=== PATIENT | male | born 1995 | race African-American/Black ===

== ENCOUNTER 2017-03-02 03:47 | Emergency (ER) | payer OTHER ==
[~2017-03-02] VITALS: Ht 170.2 cm; Wt 84.0 kg
[~2017-03-02 03:47] MED LIST: ANTIBIOTIC; ANTIDEPRESSANT; ARIP5TAB13 PO; CLON0.5T PO; HYDR10TA2 PO; PROM25TA10 PO; RANI150T6 PO; SERT25TA PO; TRAZ300T2 PO; other
[2017-03-02] MEDS ORDERED: IV NORMAL SALINE 1,000ML 1,000 ML IV SCH (04:00)
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
[2017-03-02] MEDS ORDERED: fentaNYL PF 100 MCG/2 ML VIAL IV ONE (04:30)
[2017-03-02] MEDS ORDERED: fentaNYL PF 100 MCG/2 ML VIAL IM ONE (04:30)
[2017-03-02] MEDS ORDERED: ONDANSETRON PF 4 MG/2 ML VIAL. IV ONE (04:30)
[2017-03-02 05:01] LABS: BASO # 0.1 x10^3/uL (0.0-0.2); BASO % 1 % (0-3); EOS % 0 % (0-3); HEMATOCRIT 50.2 % (39.0-53.0); HEMOGLOBIN 17.1 g/dL (13.0-17.5); LYMPH # 1.8 x10^3/uL (1.0-4.8); LYMPH % 33 % (24-48); MEAN CORPUSCULAR HEMOGLOBIN 29 pg (25-35); MEAN CORPUSCULAR HGB CONC 34 g/dL (31-37); MEAN CORPUSCULAR VOLUME 86 fL (79-100); MONO # 0.5 x10^3/uL (0.0-1.1); MONO % 9 % (0-9); NEUT # 3.1 x10^3uL (1.8-7.7); NEUT % 57 % (31-73); PLATELET COUNT 194 x10^3/uL (140-400); RED BLOOD COUNT 5.85 x10^6/uL (4.30-5.70); RED CELL DISTRIBUTION WIDTH 13.4 % (11.5-14.5); WHITE BLOOD COUNT 5.4 x10^3/uL (4.0-11.0)
[2017-03-02 05:53] LABS: BILIRUBIN,URINE SMALL (NEG); CLARITY,URINE CLEAR; COLOR,URINE YELLOW; GLUCOSE,URINE NEG (NEG)
[2017-03-02 05:54] LABS: BACTERIA,URINE FEW /HPF (0-FEW); NITRITE,URINE NEG (NEG); SQUAMOUS EPITHELIAL CELL,UR OCC /LPF; UROBILINOGEN,URINE 1 mg/dL (0.2 mg/dL)
[2017-03-02] MEDS ORDERED: IV NORMAL SALINE 1,000ML 1,000 ML IV ONE (06:00)
[2017-03-02] MEDS ORDERED: diphenhydrAMINE 50 MG/ML VIAL IVP ONE (06:00)
[2017-03-02 06:02] LABS: ALBUMIN 4.7 g/dL (3.4-5.0); ALBUMIN/GLOBULIN RATIO 1.1 (1.0-1.7); CALCIUM 9.6 mg/dL (8.5-10.1); CREATININE 1.3 mg/dL (0.7-1.3); DIRECT BILIRUBIN 0.1 mg/dL (0.0-0.2); GFR 83.5; MAGNESIUM 1.9 mg/dL (1.8-2.4); POTASSIUM 3.3 mmol/L (3.5-5.1); TOTAL BILIRUBIN 0.4 mg/dL (0.2-1.0); TOTAL PROTEIN 9.1 g/dL (6.4-8.2)
[2017-03-02 06:21] VITALS: BP 122/73
--- NOTE | 2017-03-02 06:24 | EKG ---
[address] [address] Test Date: 2017-03-02 Test Time: 03:56:19 Pat Name: KRISTI WEISS Department: Room: Gender: M Operator Supply: JANINE : 1995 Requested By: DOROTEO ORTA Order Number: [id number] Reading MD: Measurements Intervals [place] Rate: 124 P: -93 OR: 96 QRS: 62 QRSD: 86 T: 30 QT: 354 QTc: 513 Interpretive Statements SINUS TACHYCARDIA LEFT ATRIAL ABNORMALITY NON SPECIFIC T ABNORMALITY RI6.01 Unconfirmed report No previous ECG available for comparison
[2017-03-02] MEDS ORDERED: ONDA8TAB12 PO (06:39)
--- NOTE | 2017-03-02 08:05 | RAD ---
Indication chest pain. A single view of the chest was obtained. Comparison is made to an examination 02/11/2015. The heart and pulmonary vessels appear normal. The mediastinum has a normal appearance. The lungs are clear. No pleural fluid or pneumothorax is seen. There is not been a significant change relative to the previous exam. IMPRESSION: No acute or focal process is seen in the chest
== END 2017-03-02 06:45 | disposition home or self-care (01) ==
LOC: ER 03:47
DX: R07.89 Other chest pain (principal); E86.0 Dehydration; E87.2 Acidosis; F17.200 Nicotine dependence, unspecified, uncomplicated; F32.9 Major depressive disorder, single episode, unspecified; Z91.14 Patient's other noncompliance with medication regimen; Z21 Asymptomatic human immunodeficiency virus [HIV] infection status
CPT/HCPCS: 36415; 71010; 80053; 80076; 81001; 82553; 83605; 83615; 83735; 83880; 84484; 85027; 85379; 87040; 93005; 96361; 96374; 96375; 99285; J1200; J2405; J3010; J7030

== ENCOUNTER 2017-06-13 14:36 | Emergency (ER) | payer OTHER ==
[~2017-06-13] VITALS: Ht 170.2 cm; Wt 84.0 kg
[~2017-06-13 14:36] MED LIST changes: +ONDA8TAB12 PO
[2017-06-13 14:47] VITALS: BP 147/90
[2017-06-13] MEDS ORDERED: IV NORMAL SALINE 1,000ML 1,000 ML IV SCH (15:36)
[2017-06-13] MEDS ORDERED: KETOROLAC 30 MG/ML VIAL. IV ONE (16:00)
[2017-06-13] MEDS ORDERED: HYDROmorphone PF 1 MG/ML DISP.SYRIN IV ONE (16:00)
--- NOTE | 2017-06-13 16:24 | RAD ---
PQRS Compliance Statement: One or more of the following individualized dose reduction techniques were utilized for this examination: 1. Automated exposure control 2. Adjustment of the mA and/or kV according to patient size 3. Use of iterative reconstruction technique CT HEAD WITHOUT CONTRAST History: severe DODSON . Headache and dizziness x2 weeks. Comparison: None. Procedure: Axial images are obtained of the head from the skull base through the vertex without IV contrast. Findings: Bah-white matter differentiation is preserved. The ventricles and sulci are normal for the patient's age.. No mass-effect, midline shift, hemorrhage or obvious acute infarction is identified. Basilar cisterns are patent. Bone windows demonstrate no significant calvarial abnormality.The visualized paranasal sinuses appear clear. Mastoid air cells are well aerated. IMPRESSION: No acute intracranial abnormality.
--- NOTE | 2017-06-13 16:32 | PHYS DOC ---
General Chief Complaint: HEADACHE Stated Complaint: HEADACHE Time Seen by MD: 14:53 Problems: History of Present Illness Allergies: Coded Allergies: No Known Drug Allergies (Unverified , 02/15/14) Past Medical History Medical History: other Surgical History: no surgical history Orders, Labs, Meds PATIENT: KRISTI WEISS ACCOUNT: [id number] : 1995 LOCATION: ER AGE: 21 SEX: M EXAM STATUS: REG ER ORD. PHYSICIAN: CECILIA TURNER DO REASON: severe DODSON PROCEDURE: CT HEAD WO CONTRAST PQRS Compliance Statement: One or more of the following individualized dose reduction techniques were utilized for this examination: 1. Automated exposure control 2. Adjustment of the mA and/or kV according to patient size 3. Use of iterative reconstruction technique CT HEAD WITHOUT CONTRAST History: severe DODSON . Headache and dizziness x2 weeks. Comparison: None. Procedure: Axial images are obtained of the head from the skull base through the vertex without IV contrast. Findings: Bah-white matter differentiation is preserved. The ventricles and sulci are normal for the patient's age.. No mass-effect, midline shift, hemorrhage or obvious acute infarction is identified. Basilar cisterns are patent. Bone windows demonstrate no significant calvarial abnormality.The visualized paranasal sinuses appear clear. Mastoid air cells are well aerated. IMPRESSION: No acute intracranial abnormality. DICTATED AND SIGNED BY: RELL GARRETT MD DATE: 06/13/17 1620 CC: RACHNA BROWNING MD; CECILIA TURNER DO ~ 1750: Patient rechecked, he is feeling better still now with pain at the affected tooth. He is not going to give us a urine specimen. I discussed his negative findings and advised to get the tooth still with as soon as possible. Continue erythromycin, will prescribe short-term Arpin 5 mg and he agrees to follow-up with his primary care doctor tomorrow. Departure Time of Disposition: 17:51 Disposition: 01 HOME, SELF-CARE Diagnosis: dental caries, headache Condition: IMPROVED Patient Instructions: Dental Caries Additional Instructions: Off work tomorrow, note given. Aggressive hydration with Gatorade or water. Continue current medications. Prescription: Arpin 5 mg quantity 10 Take medications with food. Follow-up with your doctor tomorrow for recheck. Call tomorrow morning to schedule next available dentist appointment. Return to ED with new or changing symptoms. CECILIA TURNER DO Jun 13, 2017 16:32
[2017-06-13 17:18] LABS: BASO % 1 % (0-3); EOS % 1 % (0-3); HEMATOCRIT 49.5 % (39.0-53.0); HEMOGLOBIN 16.9 g/dL (13.0-17.5); LYMPH # 1.8 x10^3/uL (1.0-4.8); LYMPH % 43 % (24-48); MEAN CORPUSCULAR HEMOGLOBIN 30 pg (25-35); MEAN CORPUSCULAR HGB CONC 34 g/dL (31-37); MEAN CORPUSCULAR VOLUME 89 fL (79-100); MONO # 0.5 x10^3/uL (0.0-1.1); MONO % 11 % (0-9); NEUT # 1.9 x10^3uL (1.8-7.7); NEUT % 44 % (31-73); PLATELET COUNT 178 x10^3/uL (140-400); RED BLOOD COUNT 5.59 x10^6/uL (4.30-5.70); RED CELL DISTRIBUTION WIDTH 13.2 % (11.5-14.5); WHITE BLOOD COUNT 4.3 x10^3/uL (4.0-11.0)
[2017-06-13 17:30] LABS: CREATININE 1.1 mg/dL (0.7-1.3); GFR 101.3
[2017-06-13] MEDS ORDERED: HYDR-971 PO (17:53)
[2017-06-13] MEDS ORDERED: HYDROcodone/APAP 7.5/325MG 1 TAB TABLET PO ONE (18:00)
== END 2017-06-13 18:31 | disposition home or self-care (01) ==
LOC: ER 14:36
DX: R51 Headache (principal); K02.9 Dental caries, unspecified
CPT/HCPCS: 36415; 70450; 80048; 85025; 96361; 96374; 96375; 99285; J1170; J1885; J7030

== ENCOUNTER 2017-07-09 13:55 | Emergency (ER) | payer OTHER ==
[~2017-07-09 13:55] MED LIST changes: +HYDR-971 PO
== END 2017-07-09 14:30 | disposition home or self-care (01) ==
LOC: ER 13:55
DX: R51 Headache (principal); M54.2 Cervicalgia; Z53.21 Procedure and treatment not carried out due to patient leaving prior to being seen by health care provider

== ENCOUNTER 2017-10-07 18:30 | Emergency (ER) | payer OTHER ==
[~2017-10-07] VITALS: Ht 170.2 cm; Wt 88.9 kg
[2017-10-07 18:30] VITALS: BP 147/90
[2017-10-07] MEDS ORDERED: AZITHROMYCIN 250 MG TABLET. ONE (19:00)
[2017-10-07] MEDS ORDERED: AZIT250T PO (19:05)
--- NOTE | 2017-10-07 19:06 | PHYS DOC ---
Past History Past Medical History: Anxiety, Depression, HIV, STD Additional Past Medical Histor: HIV diagnosed 2012 Past Surgical History: No Surgical History Additional Past Surgical Histo: Knee and foot Smoking: Greater than 1 pack/day Alcohol Use: Occasionally Drug Use: Marijuana Adult General Chief Complaint Chief Complaint: MULTIPLE COMPLAINTS HPI HPI 21-year-old male with history of HIV now presents to the emergency department because he wants free antibiotics. Patient went to Dr. Walls his primary care physician and apparently was diagnosed as having pneumonia according to a chest x-ray. He was given a prescription for antibiotics but the patient did not even attempt to fill this prescription because he doesn't want to pay any money at all. Patient smokes and drinks alcohol daily but he states that he wants free antibiotics so he came to the emergency department. He denies chest pain or shortness of breath. Patient is a normal respiratory rate and pulse ox on arrival. He has no other complaints Review of Systems Review of Systems Constitutional: Denies fever or chills [] Eyes: Denies change in visual acuity, redness, or eye pain [] HENT: Denies nasal congestion or sore throat [] Respiratory: Denies cough or shortness of breath [] Cardiovascular: No additional information not addressed in HPI [] GI: Denies abdominal pain, nausea, vomiting, bloody stools or diarrhea [] : Denies dysuria or hematuria [] Musculoskeletal: Denies back pain or joint pain [] Integument: Denies rash or skin lesions [] Neurologic: Denies headache, focal weakness or sensory changes [] Endocrine: Denies polyuria or polydipsia [] All other systems were reviewed and found to be within normal limits, except as documented in this note. Current Medications Current Medications Current Medications Medications (Trade) Dose Ordered Sig/G[facility]deep Start Time Stop Time Status Last Admin Dose Admin Azithromycin (Zithromax) 500 mg 1X ONCE 10/07/17 19:00 10/07/17 19:01 UNV Allergies Allergies Allergies Coded Allergies Type Severity Reaction Last Updated Verified No Known Drug Allergies 07/09/17 No Physical Exam Physical Exam Appearing patient no acute distress normal respiratory rate and pulse ox. Clear lungs bilaterally with no increased work of breathing. Completely benign exam Constitutional: Well developed, well nourished, no acute distress, non-toxic appearance. [] HENT: Normocephalic, atraumatic, bilateral external ears normal, oropharynx moist, no oral exudates, nose normal. [] Eyes: PERRLA, EOMI, conjunctiva normal, no discharge. [] Neck: Normal range of motion, no tenderness, supple, no stridor. [] Cardiovascular:Heart rate regular rhythm, no murmur [] Lungs & Thorax: Bilateral breath sounds clear to auscultation [] Abdomen: Bowel sounds normal, soft, no tenderness, no masses, no pulsatile masses. [] Skin: Warm, dry, no erythema, no rash. [] Back: No tenderness, no CVA tenderness. [] Extremities: No tenderness, no cyanosis, no clubbing, ROM intact, no edema. [] Neurologic: Alert and oriented X 3, normal motor function, normal sensory function, no focal deficits noted. [] Psychologic: Affect normal, judgement normal, mood normal. [] EKG EKG [] Radiology/Procedures Radiology/Procedures [] Course & Med Decision Making Course & Med Decision Making Pertinent Labs and Imaging studies reviewed. (See chart for details) Patient with no clinical evidence of pneumonia so x-ray imaging not indicated at this time. Patient was just requesting free antibiotics so dosing was initiated with Zithromax prescription given for 4 more daily doses, and patient referred to our social work resources Center tomorrow to discuss available resources. no further workup or treatment indicated at this time patient agrees with outpatient follow-up and strict return precautions given [] Dragon Disclaimer Dragon Disclaimer This electronic medical record was generated, in whole or in part, using a voice recognition dictation system. Departure Departure: Impression: Primary Impression: Pneumonia Disposition: 01 HOME, SELF-CARE Condition: GOOD Referrals: PCP,UNKNOWN (PCP) Patient Instructions: Pneumonia, Adult Additional Instructions: Dr. Walls has made a diagnosis of pneumonia based on your outpatient x-ray. Your vital signs are stable with a normal respiratory rate and oxygen status today so no repeat chest x-ray is indicated at this time. As you have been unable to obtain your antibiotics, we have given you the first dose of Zithromax today. This is appropriate for the first 24 hours. Follow-up with the guidance Center tomorrow to obtain access to resources which may help you obtain your medications. Finish Zithromax once a day for 4 more days starting tomorrow. Rest and drink plenty of fluids. Follow-up with your doctor in 1 day and return immediately for new severe worsening symptoms Scripts Azithromycin (ZITHROMAX) 250 Mg Tablet 250 MG PO DAILY, #4 TAB 0 Refills Prov: ABAD SCOTT MD 10/07/17 ABAD SCOTT MD Oct 07, 2017 19:06
[2017-10-07] MEDS ORDERED: AZITHROMYCIN 250 MG TABLET. PO ONE (19:15)
== END 2017-10-07 19:10 | disposition home or self-care (01) ==
LOC: ER 18:30
DX: J18.9 Pneumonia, unspecified organism (principal); F41.9 Anxiety disorder, unspecified; F32.9 Major depressive disorder, single episode, unspecified; F17.210 Nicotine dependence, cigarettes, uncomplicated; F12.10 Cannabis abuse, uncomplicated; Z21 Asymptomatic human immunodeficiency virus [HIV] infection status
CPT/HCPCS: 99283; J0456

== ENCOUNTER 2018-06-08 12:09 | Emergency (ER) | payer BC, OTHER ==
[~2018-06-08] VITALS: Ht 170.2 cm; Wt 93.4 kg
[~2018-06-08 12:09] MED LIST changes: +AZIT250T PO; +RANI150T21 PO; -RANI150T6 PO
[2018-06-08 12:25] VITALS: BP 135/86
[2018-06-08] MEDS ORDERED: KETOROLAC 60 MG/2 ML VIAL. IM ONE (13:00)
[2018-06-08] MEDS ORDERED: ACET-704 PO (13:32)
--- NOTE | 2018-06-08 13:33 | PHYS DOC ---
Past History Past Medical History: Anxiety, Depression, HIV, STD Additional Past Medical Histor: HIV diagnosed 2012 Past Surgical History: No Surgical History Additional Past Surgical Histo: Knee and foot Smoking: Greater than 1 pack/day Alcohol Use: Occasionally Drug Use: Marijuana Adult General Chief Complaint Chief Complaint: POST-OP PROBLEM HPI HPI Patient is a 22 year old male with history of HIV who presents with complaining of postop pain. Patient states he had rectal condyloma removal at his primary care physician office 5 days ago without having prescription for pain medication or antibiotic. Patient complaining of constant right gluteal pain with unhealed wound and drainage since his procedure. He denies fever and chills , nausea and vomiting, abdominal pain, constipation and diarrhea. Patient states he did not contact his primary care physician office and decided to come to emergency room. Review of Systems Review of Systems Constitutional: Denies fever or chills [] Eyes: Denies change in visual acuity, redness, or eye pain [] HENT: Denies nasal congestion or sore throat [] Respiratory: Denies cough or shortness of breath [] Cardiovascular: No additional information not addressed in HPI [] GI: Denies abdominal pain, nausea, vomiting, bloody stools or diarrhea [] : Denies dysuria or hematuria [] Musculoskeletal: Denies back pain or joint pain [] Integument: Denies rash, reports skin lesions [] Neurologic: Denies headache, focal weakness or sensory changes [] Endocrine: Denies polyuria or polydipsia [] All other systems were reviewed and found to be within normal limits, except as documented in this note. Current Medications Current Medications Current Medications Medications (Trade) Dose Ordered Sig/[facility] Start Time Stop Time Status Last Admin Dose Admin Ketorolac Tromethamine (Toradol Im) 60 mg 1X ONCE 06/08/18 13:00 06/08/18 13:09 [place] Allergies Allergies Allergies Coded Allergies Type Severity Reaction Last Updated Verified No Known Drug Allergies 07/09/17 No Physical Exam Physical Exam Constitutional: Well developed, well nourished, mild distress, non-toxic appearance. [] HENT: Normocephalic, atraumatic Eyes: PERRLA, EOMI, conjunctiva normal, no discharge. [] Neck: Normal range of motion, no tenderness, supple, no stridor. [] Cardiovascular:Heart rate regular rhythm, no murmur [] Lungs & Thorax: Bilateral breath sounds clear to auscultation [] Abdomen: Bowel sounds normal, soft, no tenderness, no masses, no pulsatile masses. [] Skin: Warm, dry, no erythema, no rash, 1 x 1 cm circular area of biopsy in right gluteal close to anal area with no sign of infection or inflammation or drainage of pus. [] Back: No tenderness, no CVA tenderness. [] Extremities: No tenderness, no cyanosis, no clubbing, ROM intact, no edema. [] Neurologic: Alert and oriented X 3, normal motor function, normal sensory function, no focal deficits noted. [] Psychologic: Affect normal, judgement normal, mood normal. [] Current Patient Data Vital Signs Vital Signs Date Time Temp Pulse Resp B/P (MAP) Pulse Ox O2 Delivery O2 Flow Rate FiO2 06/08/18 12:25 98.3 66 18 100 Room Air EKG EKG [] Radiology/Procedures Radiology/Procedures [] Course & Med Decision Making Course & Med Decision Making discharge: I've spoken with the patient and/or caregivers. I've explained the patient's condition, diagnosis and treatment plan based on information available to me at this time. I've answered the patient's and/or caregivers questions and addressed any concerns. The patient and/or caregivers have a good understanding the patient's diagnosis, condition and treatment plan as can be expected at this point. Vital signs have been stabilized. The patient's condition is stable for discharge from the emergency department. The patient will pursue further outpatient evaluation with her primary care provider or other designated consulting physician as outlined in the discharge instructions. Patient and/or caregivers are agreeable to this plan of care and follow-up instructions have been explained in detail. The patient and/or caregivers have received these instructions in written format and expressed understanding of these discharge instructions. The patient and her caregivers are aware that if any significant change in condition or worsening of symptoms should prompt him to immediately return to this of the closest emergency department. If an emergent department is not readily available I would encourage him to call 911. Nesha Disclaimer Nesha Disclaimer This electronic medical record was generated, in whole or in part, using a voice recognition dictation system. Departure Departure: Impression: Primary Impression: Post-op pain Additional Impressions: HIV (human immunodeficiency virus infection) Tobacco abuse counseling Tobacco abuse Disposition: HOME, SELF-CARE (@1340) Condition: IMPROVED Referrals: JEROME BLANC MD (PCP) Patient Instructions: Back Pain, Adult, Sitz Bath, Smoking Cessation, Tips For Success Additional Instructions: Keep wound dry and clean Follow-up with your primary care physician in 3-5 days Return to ER if not getting better Scripts Acetaminophen With Codeine (TYLENOL WITH CODEINE #3 TABLET) 1 Each Tablet 1 TAB PO Q6HRS for pain, #14 TAB Prov: LACEY PITTMAN MD 06/08/18 Problem Qualifiers LACEY PITTMAN MD Jun 08, 2018 13:33
== END 2018-06-08 13:45 | disposition home or self-care (01) ==
LOC: ER 12:09
DX: G89.18 Other acute postprocedural pain (principal); M54.5 Low back pain; Z21 Asymptomatic human immunodeficiency virus [HIV] infection status; F17.200 Nicotine dependence, unspecified, uncomplicated; Z71.6 Tobacco abuse counseling; F41.9 Anxiety disorder, unspecified; F32.9 Major depressive disorder, single episode, unspecified; Z98.890 Other specified postprocedural states
CPT/HCPCS: 96372; 99283; J1885

== ENCOUNTER 2018-07-20 19:55 | Emergency (ER) | payer OTHER, BC ==
[~2018-07-20] VITALS: Ht 170.2 cm; Wt 92.7 kg
[~2018-07-20 19:55] MED LIST changes: +ACET-704 PO; +HYDR-3165 PO; -HYDR-971 PO
[2018-07-20] MEDS ORDERED: IV NORMAL SALINE 1,000ML 1,000 ML IV ONE (20:00)
[2018-07-20] MEDS ORDERED: ONDANSETRON PF 4 MG/2 ML VIAL. IV ONE (20:15)
[2018-07-20 20:22] LABS: BASO # 0.1 x10^3/uL (0.0-0.2); BASO % 2 % (0-3); EOS % 1 % (0-3); HEMATOCRIT 48.5 % (39.0-53.0); HEMOGLOBIN 16.2 g/dL (13.0-17.5); LYMPH # 2.1 x10^3/uL (1.0-4.8); LYMPH % 49 % (24-48); MEAN CORPUSCULAR HEMOGLOBIN 29 pg (25-35); MEAN CORPUSCULAR HGB CONC 33 g/dL (31-37); MEAN CORPUSCULAR VOLUME 86 fL (79-100); MONO # 0.4 x10^3/uL (0.0-1.1); MONO % 8 % (0-9); NEUT # 1.7 x10^3uL (1.8-7.7); NEUT % 39 % (31-73); PLATELET COUNT 188 x10^3/uL (140-400); RED BLOOD COUNT 5.62 x10^6/uL (4.30-5.70); RED CELL DISTRIBUTION WIDTH 12.7 % (11.5-14.5); WHITE BLOOD COUNT 4.3 x10^3/uL (4.0-11.0)
--- NOTE | 2018-07-20 20:32 | PHYS DOC ---
Past History Past Medical History: HIV Additional Past Medical Histor: HIV diagnosed 2012 Past Surgical History: Other Additional Past Surgical Histo: Knee and foot Smoking: Greater than 1 pack/day Alcohol Use: Occasionally Drug Use: Marijuana Adult General Chief Complaint Chief Complaint: MECHANICAL FALL HPI HPI 22-year-old male presents after fall. 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 The patient hit his head according to bystanders. The patient knows he had loss of consciousness because when he woke up there were several people standing around him trying to help him back up. He is unsure how long he was unconscious. When he woke up, he felt like himself. He had some elbow pain and a headache, but did not feel groggy or altered. A bystander stated that he had some kind of "seizure like movements" after his head hit the floor. The patient does not have tongue laceration or loss of bowel or bladder. He has no history of seizure disorder. At this time, the patient is feeling normal. He does have a headache and some right elbow pain , but otherwise feels fine. He denies any feeling of illness prior to this episode. He denies fever or chills. Review of Systems Review of Systems Constitutional: Denies fever or chills [] Eyes: Denies change in visual acuity, redness, or eye pain [] HENT: Denies nasal congestion or sore throat [] Respiratory: Denies cough or shortness of breath [] Cardiovascular: No additional information not addressed in HPI [] GI: Denies abdominal pain, nausea, vomiting, bloody stools or diarrhea [] : Denies dysuria or hematuria [] Musculoskeletal: Denies back pain or joint pain [] Integument: Denies rash or skin lesions [] Neurologic: Headache. Denies focal weakness or sensory changes [] Endocrine: Denies polyuria or polydipsia [] All other systems were reviewed and found to be within normal limits, except as documented in this note. Current Medications Current Medications Current Medications Medications (Trade) Dose Ordered Sig/Gurdeep Start Time Stop Time Status Last Admin Dose Admin Ondansetron HCl (Zofran) 4 mg 1X ONCE 07/20/18 20:15 07/20/18 20:16 DC 07/20/18 20:26 4 MG Sodium Chloride 1,000 ml @ 1,000 mls/hr 1X ONCE 07/20/18 20:00 07/20/18 20:59 07/20/18 20:26 1,000 MLS/HR Allergies Allergies Allergies Coded Allergies Type Severity Reaction Last Updated Verified No Known Drug Allergies 07/09/17 No Physical Exam Physical Exam Constitutional: Well developed, well nourished, no acute distress, non-toxic appearance. [] HENT: Normocephalic, atraumatic, bilateral external ears normal, oropharynx moist, no oral exudates, nose normal. [] Eyes: PERRLA, EOMI, conjunctiva normal, no discharge. [] Neck: Normal range of motion, no tenderness, supple, no stridor. [] Cardiovascular:Heart rate regular rhythm, no murmur [] Lungs & Thorax: Bilateral breath sounds clear to auscultation [] Abdomen: Bowel sounds normal, soft, no tenderness, no masses, no pulsatile masses. [] Skin: Warm, dry, no erythema, no rash. [] Back: No tenderness, no CVA tenderness. [] Extremities: No tenderness, no cyanosis, no clubbing, ROM intact, no edema. [] Neurologic: Alert and oriented X 3, normal motor function, normal sensory function, no focal deficits noted. [] Psychologic: Affect normal, judgement normal, mood normal. [] Current Patient Data Vital Signs Vital Signs Date Time Temp Pulse Resp B/P (MAP) Pulse Ox O2 Delivery O2 Flow Rate FiO2 07/20/18 19:55 98.3 87 18 100 Room Air Lab Results Laboratory Tests Test 07/20/18 20:05 White Blood Count 4.3 x10^3/uL (4.0-11.0) Red Blood Count 5.62 x10^6/uL (4.30-5.70) Hemoglobin 16.2 g/dL (13.0-17.5) Hematocrit 48.5 % (39.0-53.0) Mean Corpuscular Volume 86 fL (79-100) Mean Corpuscular Hemoglobin 29 pg (25-35) Mean Corpuscular Hemoglobin Concent 33 g/dL (31-37) Red Cell Distribution Width 12.7 % (11.5-14.5) Platelet Count 188 x10^3/uL (140-400) Neutrophils (%) (Auto) 39 % (31-73) Lymphocytes (%) (Auto) 49 % (24-48) H Monocytes (%) (Auto) 8 % (0-9) Eosinophils (%) (Auto) 1 % (0-3) Basophils (%) (Auto) 2 % (0-3) Neutrophils # (Auto) 1.7 x10^3uL (1.8-7.7) L Lymphocytes # (Auto) 2.1 x10^3/uL (1.0-4.8) Monocytes # (Auto) 0.4 x10^3/uL (0.0-1.1) Eosinophils # (Auto) 0.0 x10^3/uL (0.0-0.7) Basophils # (Auto) 0.1 x10^3/uL (0.0-0.2) EKG EKG [] Radiology/Procedures Radiology/Procedures [] Course & Med Decision Making Course & Med Decision Making Pertinent Labs and Imaging studies reviewed. (See chart for details) Patient's head CT is negative for acute findings. His lab work is unremarkable. His urinalysis shows marijuana use. He is had no further episodes in the emergency room. He is stable for discharge at this time. [] Dragon Disclaimer Dragon Disclaimer This electronic medical record was generated, in whole or in part, using a voice recognition dictation system. Departure Departure: Referrals: JEROME BLANC MD (PCP) RIK HANSEN DO Jul 20, 2018 20:31
[2018-07-20 21:08] LABS: ALBUMIN 4.1 g/dL (3.4-5.0); ALBUMIN/GLOBULIN RATIO 1.3 (1.0-1.7); CREATININE 1.1 mg/dL (0.7-1.3); GFR 100.4; POTASSIUM 3.6 mmol/L (3.5-5.1); TOTAL BILIRUBIN 0.5 mg/dL (0.2-1.0); TOTAL PROTEIN 7.3 g/dL (6.4-8.2)
--- NOTE | 2018-07-20 21:18 | RAD ---
INDICATION: FELL, HIT HEAD, LOC AND HAD SEIZURE
HIT HEAD FIRST THEN SEIZED
NAUSEA, TEMPORAL PAIN AND PRESSURE IN HEAD COMPARISON: June 13, 2017 TECHNIQUE: Axial CT images obtained through the head without intravenous contrast. One or more of the following individualized dose reduction techniques were utilized for this examination: 1. Automated exposure control; 2. Adjustment of the mA and/or kV according to patient size; 3. Use of iterative reconstruction technique. FINDINGS: No intracranial hemorrhage. No midline shift. Basal cisterns patent. Ventricles and sulci are unremarkable. No acute osseous abnormality. Orbits and paranasal sinuses unremarkable. IMPRESSION: 1. No acute intracranial hemorrhage. Electronically signed by: Gareth Suazo MD (07/20/2018 9:14 PM) [facility]
[2018-07-20 21:22] LABS: AMPHETAMINE/METHAMPHETAMINE NEG (NEG); BARBITURATES NEG (NEG); BENZODIAZEPINES NEG (NEG); CANNABINOIDS POS (NEG); COCAINE NEG (NEG); METHADONE NEG (NEG); OPIATES NEG (NEG); PHENCYCLIDINE NEG (NEG)
[2018-07-20 21:30] LABS: COLOR,URINE YELLOW
[2018-07-20] MEDS ORDERED: KETOROLAC 30 MG/ML VIAL. IV ONE (21:30)
[2018-07-20 21:31] LABS: BACTERIA,URINE 0 /HPF (0-FEW); BILIRUBIN,URINE NEG (NEG); CLARITY,URINE CLEAR; GLUCOSE,URINE NEG (NEG); NITRITE,URINE NEG (NEG); RBC,URINE OCC /HPF (0-2); SQUAMOUS EPITHELIAL CELL,UR FEW /LPF; UROBILINOGEN,URINE 0.2 mg/dL (0.2 mg/dL)
[2018-07-20 21:46] VITALS: BP 125/79
--- NOTE | 2018-07-20 22:36 | RAD ---
EXAM: Right elbow, 3 views. HISTORY: Pain. Fall. COMPARISON: None. FINDINGS: 3 views of the right elbow are obtained. There is no fracture, dislocation or subluxation. There is no elbow effusion. IMPRESSION: No acute osseous finding. Electronically signed by: eZinab Thomas MD (07/20/2018 10:33 PM) [facility]
== END 2018-07-20 21:51 | disposition home or self-care (01) ==
LOC: ER 19:55
DX: S06.9X9A Unspecified intracranial injury with loss of consciousness of unspecified duration, initial encounter (principal); M25.521 Pain in right elbow; R55 Syncope and collapse; F17.200 Nicotine dependence, unspecified, uncomplicated; W01.198A Fall on same level from slipping, tripping and stumbling with subsequent striking against other object, initial encounter; Y93.89 Activity, other specified; Y92.511 Restaurant or cafe as the place of occurrence of the external cause; Y99.0 Civilian activity done for income or pay
CPT/HCPCS: 36415; 70450; 73080; 80053; 80307; 81001; 85025; 96361; 96374; 96375; 99284; J1885; J2405; J7030

== ENCOUNTER 2018-09-10 03:46 | Emergency (ER) | payer BC, OTHER ==
[~2018-09-10] VITALS: Ht 170.2 cm; Wt 93.0 kg
[~2018-09-10 03:46] MED LIST changes: +RANI-376 PO; -RANI150T21 PO
[2018-09-10 03:57] VITALS: BP 128/86
[2018-09-10] MEDS ORDERED: PENI500T PO (04:03)
[2018-09-10] MEDS ORDERED: ACET-704 PO (04:03)
--- NOTE | 2018-09-10 04:04 | PHYS DOC ---
Adult General Chief Complaint Chief Complaint dental pain HPI HPI 22 years old presented with dental pain for the past 10 days on the left upper side Review of Systems Review of Systems Constitutional: Denies fever or chills [] Eyes: Denies change in visual acuity, redness, or eye pain [] HENT: Denies nasal congestion or sore throat [] Respiratory: Denies cough or shortness of breath [] Cardiovascular: No additional information not addressed in HPI [] GI: Denies abdominal pain, nausea, vomiting, bloody stools or diarrhea [] : Denies dysuria or hematuria [] Musculoskeletal: Denies back pain or joint pain [] Integument: Denies rash or skin lesions [] Neurologic: Denies headache, focal weakness or sensory changes [] Endocrine: Denies polyuria or polydipsia [] All other systems were reviewed and found to be within normal limits, except as documented in this note. Allergies Allergies Allergies Coded Allergies Type Severity Reaction Last Updated Verified No Known Drug Allergies 07/09/17 No Physical Exam Physical Exam Constitutional: Well developed, well nourished, no acute distress, non-toxic appearance. [] HENT: Normocephalic, atraumatic, bilateral external ears normal, oropharynx moist, no oral exudates, nose normal. [] Eyes: PERRLA, EOMI, conjunctiva normal, no discharge. [] Neck: Normal range of motion, no tenderness, supple, no stridor. [] Cardiovascular:Heart rate regular rhythm, no murmur [] Lungs & Thorax: Bilateral breath sounds clear to auscultation [] Abdomen: Bowel sounds normal, soft, no tenderness, no masses, no pulsatile masses. [] Skin: Warm, dry, no erythema, no rash. [] Back: No tenderness, no CVA tenderness. [] Extremities: No tenderness, no cyanosis, no clubbing, ROM intact, no edema. [] Neurologic: Alert and oriented X 3, normal motor function, normal sensory function, no focal deficits noted. [] Psychologic: Affect normal, judgement normal, mood normal. [] Current Patient Data Vital Signs Vital Signs Date Time Temp Pulse Resp B/P (MAP) Pulse Ox O2 Delivery O2 Flow Rate FiO2 09/10/18 03:57 96.7 68 20 97 Room Air EKG EKG [] Radiology/Procedures Radiology/Procedures [] Course & Med Decision Making Course & Med Decision Making Pertinent Labs and Imaging studies reviewed. (See chart for details) [] Final Impression Final Impression [] Problems: (1) Pain, dental Dragon Disclaimer Dragon Disclaimer This electronic medical record was generated, in whole or in part, using a voice recognition dictation system. JAY MEDEL MD Sep 10, 2018 04:04
[2018-09-10] MEDS ORDERED: HYDROcodone/APAP 5/325MG 1 TAB TABLET PO ONE (04:30)
[2018-09-10] MEDS ORDERED: IBUPROFEN 600 MG TABLET. PO ONE (04:30)
== END 2018-09-10 04:13 | disposition home or self-care (01) ==
LOC: ER 03:46
DX: K08.89 Other specified disorders of teeth and supporting structures (principal)
CPT/HCPCS: 99283

== ENCOUNTER 2018-10-10 11:21 | Emergency (ER) | payer BC ==
[~2018-10-10 11:21] MED LIST changes: +PENI500T PO; -RANI-376 PO; +RANI150T21 PO
[2018-10-10] MEDS ORDERED: HYDROcodone/APAP 5/325MG 1 TAB TABLET PO ONE (11:45)
--- NOTE | 2018-10-10 11:52 | PHYS DOC ---
Past History Past Medical History: HIV Additional Past Medical Histor: HIV diagnosed 2012 Past Surgical History: Other Additional Past Surgical Histo: Knee and foot Smoking: Greater than 1 pack/day Alcohol Use: Occasionally Drug Use: Marijuana Adult General Chief Complaint Chief Complaint: GROIN PAIN [facility] HPI Patient is a 22 year old male with history of HIV who presents with complaining of bilateral groin pain. Patient complaining of bilateral groin pain for the last 2 days after the sting heavy furniture as a constant pain with radiation to the suprapubic area. Patient complaining of mild painful urination and problems with erection while tried to have sex this morning. Patient denies nausea and vomiting, fever and chills, hematuria, penile discharge, bulging good urine groin. Patient states he did not take [id number] pain medication for the last 2 days. Review of Systems Review of Systems Constitutional: Denies fever or chills [] Eyes: Denies change in visual acuity, redness, or eye pain [] HENT: Denies nasal congestion or sore throat [] Respiratory: Denies cough or shortness of breath [] Cardiovascular: No additional information not addressed in HPI [] GI: Reports abdominal pain, nausea, denies vomiting, bloody stools or diarrhea [ ] : Reports dysuria Musculoskeletal: Denies back pain or joint pain [] Integument: Denies rash or skin lesions [] Neurologic: Denies headache, focal weakness or sensory changes [] Endocrine: Denies polyuria or polydipsia [] All other systems were reviewed and found to be within normal limits, except as documented in this note. Current Medications Current Medications Current Medications Medications (Trade) Dose Ordered Sig/Gurdeep Start Time Stop Time Status Last Admin Dose Admin Acetaminophen/ Hydrocodone Bitart (Lortab 5/325) 1 tab 1X ONCE 10/10/18 11:45 10/10/18 11:46 UNV Allergies Allergies Allergies Coded Allergies Type Severity Reaction Last Updated Verified No Known Drug Allergies 07/09/17 No Physical Exam Physical Exam Constitutional: Well developed, well nourished, moderately distress, non-toxic appearance. [] HENT: Normocephalic, atraumatic Eyes: PERRLA, EOMI, conjunctiva normal, no discharge. [] Neck: Normal range of motion, no tenderness, supple, no stridor. [] Cardiovascular:Heart rate regular rhythm, no murmur [] Lungs & Thorax: Bilateral breath sounds clear to auscultation [] Abdomen: Bowel sounds normal, soft, no tenderness, no masses, no pulsatile masses. 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 [] Back: No tenderness, no CVA tenderness. [] Extremities: No tenderness, no cyanosis, no clubbing, ROM intact, no edema. [] Neurologic: Alert and oriented X 3, normal motor function, normal sensory function, no focal deficits noted. [] Psychologic: Affect anxious, judgement normal, mood normal. [] EKG EKG [] Radiology/Procedures Radiology/Procedures [address] [address] IMAGING REPORT Signed PATIENT: KRISTI WEISS ACCOUNT: [id number] : 1995 LOCATION: ER AGE: 22 SEX: M EXAM STATUS: REG ER ORD. PHYSICIAN: LACEY PITTMAN MD REASON: bilateral testicular pain PROCEDURE: TESTICULAR/SCROTUM Indication:Pain X2 days TECHNIQUE: Grayscale, color Doppler and spectral waveform is of the testicles obtained. COMPARISON:None FINDINGS: The right testicle measures 3.4 x 4.0 x 2.6 cm and is homogeneous in echogenicity without focal lesion. The right testicle demonstrates evidence of blood flow. No hydrocele. 2 mm anechoic lesion in the right testicle likely cyst. The epididymis measures 2 cm in longest dimension without hyperemia. The left testicle measures 3.4 x 3.0 x 2.0 cm and is homogeneous in echogenicity without focal lesion. The left testicle demonstrates evidence of blood flow. No hydrocele. The epididymal head measures 1 cm in longest dimension and is normal in size. Mild scrotal wall thickening is seen measuring 7 mm. IMPRESSION: 1. No focal testicular lesion. 2. Bilateral testicles demonstrates evidence of blood flow. 3. Scrotal wall edema, nonspecific. Electronically signed by: Mark Dubose DO (10/10/2018 1:07 PM) [facility] DICTATED AND SIGNED BY: MARK DUBOSE DO DATE: 10/10/18 [id number] CC: LACEY PITTMAN MD; PCP,NO ~ Course & Med Decision Making Course & Med Decision Making Pertinent Labs and Imaging studies reviewed. (See chart for details) Evaluation of patient in ER showed 22-year-old male patient with complaining of bilateral groin pain after lifting weights. Patient had unremarkable physical exam and UA and testicular ultrasound. Patient treated with hydrocodone and felt better. Plan discharge patient home with diagnosis of muscle strain. Dragon Disclaimer Dragon Disclaimer This electronic medical record was generated, in whole or in part, using a voice recognition dictation system. Departure Departure: Impression: Primary Impression: Abdominal muscle strain Additional Impressions: HIV (human immunodeficiency virus infection) Tobacco abuse Tobacco abuse counseling Disposition: HOME, SELF-CARE (At 1358) Condition: IMPROVED Referrals: NON,STAFF (PCP) Patient Instructions: Muscle Strain, Smoking Cessation, Tips For Success Additional Instructions: Drink plenty of liquids Follow-up with your primary care physician in 3-5 days Return to ER if not getting better Scripts Naproxen (NAPROSYN) 500 Mg Tablet 500 MG PO BID for pain, #20 TAB Prov: LACEY PITTMAN MD 10/10/18 Cyclobenzaprine Hcl (CYCLOBENZAPRINE HCL) 10 Mg Tablet 1 TAB PO TID for pain, #30 TAB Prov: LACEY PITTMAN MD 10/10/18 Problem Qualifiers LACEY PITTMAN MD Oct 10, 2018 11:52
[2018-10-10 12:11] LABS: BACTERIA,URINE FEW /HPF (0-FEW); BILIRUBIN,URINE NEG (NEG); CLARITY,URINE HAZY; COLOR,URINE YELLOW; GLUCOSE,URINE NEG (NEG); NITRITE,URINE NEG (NEG); UROBILINOGEN,URINE 0.2 mg/dL (0.2 mg/dL)
[2018-10-10 12:12] LABS: HYALINE CASTS, URINE OCC /HPF; SPERM,URINE PRESENT /HPF; SQUAMOUS EPITHELIAL CELL,UR OCC /LPF
--- NOTE | 2018-10-10 13:10 | RAD ---
Indication:Pain X2 days TECHNIQUE: Grayscale, color Doppler and spectral waveform is of the testicles obtained. COMPARISON:None FINDINGS: The right testicle measures 3.4 x 4.0 x 2.6 cm and is homogeneous in echogenicity without focal lesion. The right testicle demonstrates evidence of blood flow. No hydrocele. 2 mm anechoic lesion in the right testicle likely cyst. The epididymis measures 2 cm in longest dimension without hyperemia. The left testicle measures 3.4 x 3.0 x 2.0 cm and is homogeneous in echogenicity without focal lesion. The left testicle demonstrates evidence of blood flow. No hydrocele. The epididymal head measures 1 cm in longest dimension and is normal in size. Mild scrotal wall thickening is seen measuring 7 mm. IMPRESSION: 1. No focal testicular lesion. 2. Bilateral testicles demonstrates evidence of blood flow. 3. Scrotal wall edema, nonspecific. Electronically signed by: Mark Keyes DO (10/10/2018 1:07 PM) [facility]
[2018-10-10 13:18] VITALS: BP 123/80
[2018-10-10] MEDS ORDERED: CYCL-331 PO ×2 (13:59→14:07)
[2018-10-10] MEDS ORDERED: NAPR-683 PO ×2 (13:59→14:07)
== END 2018-10-10 14:15 | disposition home or self-care (01) ==
LOC: ER 11:21
DX: S39.011A Strain of muscle, fascia and tendon of abdomen, initial encounter (principal); F17.200 Nicotine dependence, unspecified, uncomplicated; Z71.6 Tobacco abuse counseling; X50.9XXA Other and unspecified overexertion or strenuous movements or postures, initial encounter; Y93.89 Activity, other specified; Y92.89 Other specified places as the place of occurrence of the external cause; Y99.8 Other external cause status
CPT/HCPCS: 76870; 81001; 99284-25

== ENCOUNTER 2019-04-08 04:43 | Observation (INO) | payer BC ==
[~2019-04-08] VITALS: Ht 170.2 cm; Wt 97.5 kg
[~2019-04-08 04:43] MED LIST changes: +CYCL-331 PO; +NAPR-683 PO; +RANI-376 PO; -RANI150T21 PO
[2019-04-08] MEDS: IV RINGERS SOLUTION,LACTATED 1,000 ML IV SCH ×2 (05:00→13:10)
[2019-04-08] MEDS ORDERED: FOLIC ACID 5 MG/ML SYRINGE for ER IV ONE (05:01)
[2019-04-08] MEDS ORDERED: THIAMINE 200 MG/2 ML VIAL. IV ONE (05:01)
[2019-04-08] MEDS ORDERED: MVI, ADULT NO.4 WITH VIT K 10 ML VIAL IV ONE (05:01)
--- NOTE | 2019-04-08 05:03 | ED.ADGEN ---
Past History Past Medical History: Alcoholism, HIV Additional Past Medical Histor: HIV diagnosed 2012 Past Surgical History: Other Additional Past Surgical Histo: Knee and foot Smoking: Greater than 1 pack/day Alcohol Use: Occasionally Drug Use: Marijuana Adult General Chief Complaint Chief Complaint ".. I been... drinking all night....B and J, Regina, Shirley Shine, vodka.. .. maybe couple pints worth... I took some muscle relaxer's I had.. ( suspect flexeril 10 x 5- 20 tablets).. " HPI HPI Patient is a 23 year old male who presents with hx of alcohol intoxication and taking muscle relaxers. Patient admits to drinking at least 2 pints of hard liquor- B&J, tequbelle, vodka, rebeca jackson. Pt reportedly took between 5 to 20 - believed to be Flexeril 10 at approximately 04:30 hrs. pills left over from Rx in September. ( Pt. had Rx. in September for 30 - Flexeril by ED record.). Patient also admits to use of cocaine and marijuana tonight. Patient has co-medical conditions of HIV since 2012. Has been off his HIV suppression meds Triumeq for past two weeks. Pt. normally follows at for care and his meds. Pt. does not remember his last HIV counts. Pt. evasive as to why the took an over dosage of Flexeril after drinking heavy all night. Pt. castro have hx of past polysubstance abuse. brought pt. to ED because he seemed over sedated. Review of Systems Review of Systems Constitutional: Denies fever or chills [] Eyes: Denies change in visual acuity, redness, or eye pain [] HENT: Denies nasal congestion or sore throat [] Respiratory: Denies cough or shortness of breath [] Cardiovascular: No additional information not addressed in HPI [] GI: Denies abdominal pain, nausea, vomiting, bloody stools or diarrhea [] : Denies dysuria or hematuria [] Musculoskeletal: Denies back pain or joint pain [] Integument: Denies rash or skin lesions [] Neurologic: Denies headache, focal weakness or sensory changes [] Endocrine: Denies polyuria or polydipsia [] All other systems were reviewed and found to be within normal limits, except as documented in this note. Family History Family History Noncontributory Current Medications Current Medications Current Medications Medications (Trade) Dose Ordered Sig/Gurdeep Start Time Stop Time Status Last Admin Dose Admin Folic Acid (FOLIC ACID SYRINGE for ER) 5 mg STK-MED ONCE 04/08/19 05:01 04/08/19 05:02 DC Multivitamins/ Minerals (Infuvite Adult) 10 ml STK-MED ONCE 04/08/19 05:01 04/08/19 05:02 DC Multivitamins/ Minerals 10 ml/ Folic Acid 1 mg/ Thiamine HCl 100 mg/Sodium Chloride 1,011.1 ml @ 1,000 mls/ hr 1X ONCE 04/08/19 05:30 04/08/19 06:30 DC 04/08/19 05:25 1,000 MLS/HR Thiamine HCl (Thiamine Vial) 200 mg STK-MED ONCE 04/08/19 05:01 04/08/19 05:02 DC See nursing for home meds Allergies Allergies Allergies Coded Allergies Type Severity Reaction Last Updated Verified No Known Drug Allergies 04/08/19 No Physical Exam Physical Exam Constitutional: , no acute distress, sedated in appearance. [] HENT: Normocephalic, atraumatic, bilateral external ears normal, oropharynx moist, no oral exudates, nose normal. []Tattoo lateral angle of right eye (tear drop), Eyes: PERRLA, EOMI, conjunctiva normal, no discharge. [] Neck: Normal range of motion, no tenderness, supple, no stridor. [] Cardiovascular:Heart rate regular rhythm, no murmur [] Lungs & Thorax: Bilateral breath sounds at apexes with scattered wheezes on auscultation [] Abdomen: Bowel sounds normal, soft, no tenderness, no masses, no pulsatile masses. [] Skin: Warm, dry, no erythema, no rash. [] Back: No tenderness, no CVA tenderness. [] Extremities: No tenderness, no cyanosis, no clubbing, ROM intact, no edema. [] Surgical scar left knee and ankle. Neurologic: Alert and oriented , sedated but will answer questions, moves all extremities on request, distal sensory function, no focal deficits noted. [] Psychologic: Affect sedated, judgement poor insight to his drug use and maintenance therapy for his HIV, mood depressed Current Patient Data Vital Signs Vital Signs Date Time Temp Pulse Resp B/P (MAP) Pulse Ox O2 Delivery O2 Flow Rate FiO2 04/08/19 05:23 87 20 139/96 (110) 98 Room Air 04/08/19 05:08 98.4 Lab Results Laboratory Tests Test 04/08/19 04:55 04/08/19 05:08 White Blood Count 5.3 x10^3/uL (4.0-11.0) Red Blood Count 5.31 x10^6/uL (4.30-5.70) Hemoglobin 15.6 g/dL (13.0-17.5) Hematocrit 45.6 % (39.0-53.0) Mean Corpuscular Volume 86 fL (79-100) Mean Corpuscular Hemoglobin 29 pg (25-35) Mean Corpuscular Hemoglobin Concent 34 g/dL (31-37) Red Cell Distribution Width 12.8 % (11.5-14.5) Platelet Count 211 x10^3/uL (140-400) Neutrophils (%) (Auto) 60 % (31-73) Lymphocytes (%) (Auto) 34 % (24-48) Monocytes (%) (Auto) 6 % (0-9) Eosinophils (%) (Auto) 0 % (0-3) Basophils (%) (Auto) 1 % (0-3) Neutrophils # (Auto) 3.2 x10^3uL (1.8-7.7) Lymphocytes # (Auto) 1.8 x10^3/uL (1.0-4.8) Monocytes # (Auto) 0.3 x10^3/uL (0.0-1.1) Eosinophils # (Auto) 0.0 x10^3/uL (0.0-0.7) Basophils # (Auto) 0.0 x10^3/uL (0.0-0.2) Erythrocyte Sedimentation Rate 2 (0-15) Prothrombin Time 10.4 SEC (9.4-11.4) Prothrombin Time INR 1.0 (0.9-1.1) Activated Partial Thromboplast Time 25 SEC (23-33) Sodium Level 139 mmol/L (136-145) Potassium Level 3.6 mmol/L (3.5-5.1) Chloride Level 103 mmol/L (98-107) Carbon Dioxide Level 24 mmol/L (21-32) Anion Gap 12 (6-14) Blood Urea Nitrogen 12 mg/dL (8-26) Creatinine 1.1 mg/dL (0.7-1.3) Estimated GFR (Cockcroft-Gault) 99.5 Glucose Level 100 mg/dL (70-99) H Calcium Level 8.7 mg/dL (8.5-10.1) Magnesium Level 1.9 mg/dL (1.8-2.4) Total Bilirubin 0.3 mg/dL (0.2-1.0) Direct Bilirubin 0.1 mg/dL (0.0-0.2) Aspartate Amino Transferase (AST) 22 U/L (15-37) Alanine Aminotransferase (ALT) 23 U/L (16-63) Alkaline Phosphatase 75 U/L (46-116) Creatine Kinase 510 U/L (39-308) H Troponin I Quantitative < 0.017 ng/mL (0-0.055) AV-Gbg-Q-Type Natriuretic Peptide 21 pg/mL (0-124) Total Protein 7.8 g/dL (6.4-8.2) Albumin 4.1 g/dL (3.4-5.0) Lipase 75 U/L (73-393) Thyroid Stimulating Hormone (TSH) 2.507 uIU/mL (0.358-3.740) Salicylates Level 2.0 mg/dL (2.8-20.0) L Salicylate Last Dose Date Unknown Salicylate Last Dose Time Unknown Acetaminophen Level < 2.0 mcg/mL (10-30) L Acetaminophen Last Dose Date Unknown Acetaminophen Last Dose Time Unknown Ethyl Alcohol Level 76 mg/dL (0-10) H Urine Collection Type Void Urine Color Yellow Urine Clarity Hazy Urine pH 6.5 Urine Specific [place] >=1.030 Urine Protein 100 mg/dl (NEG-TRACE) Urine Glucose (UA) Neg mg/dL (NEG) Urine Ketones (Stick) Neg mg/dL (NEG) Urine Blood Small (NEG) Urine Nitrite Neg (NEG) Urine Bilirubin Neg (NEG) Urine Urobilinogen Dipstick 0.2 mg/dL (0.2 mg/dL) Urine Leukocyte Esterase Neg (NEG) Urine RBC 6-10 /HPF (0-2) Urine WBC 1-4 /HPF (0-4) Urine Squamous Epithelial Cells Occ /LPF Urine Bacteria Few /HPF (0-FEW) Urine Hyaline Casts Occ /HPF Urine Mucus Mod /LPF Urine Opiates Screen Neg (NEG) Urine Methadone Screen Neg (NEG) Urine Barbiturates Neg (NEG) Urine Phencyclidine Screen Neg (NEG) Urine Amphetamine/Methamphetamine Pos (NEG) Urine Benzodiazepines Screen Neg (NEG) Urine Cocaine Screen Pos (NEG) Urine Cannabinoids Screen Pos (NEG) Urine Ethyl Alcohol Pos (NEG) EKG EKG My interpretation EKG shows a sinus rhythm at 82 bpm[] Radiology/Procedures Radiology/Procedures My interpretation of CXR[]shows no acute cardiopul. changes [address] [id number] IMAGING REPORT Signed PATIENT: KRISTI WEISS ACCOUNT: [id number] : 1995 LOCATION: ER AGE: 23 SEX: M EXAM STATUS: REG ER ORD. PHYSICIAN: KHOI AGUERO MD REASON: Hx. of OD alcohol , muscle relaxer PROCEDURE: PORTABLE CHEST 1V PORTABLE CHEST 1V INDICATION: . COMPARISON STUDY: None. FINDINGS: Lungs: Normal lung volume. No pulmonary mass or consolidation. The tracheobronchial tree and hilar structures are normal. Pleura: No pleural effusion or pneumothorax. Heart and Mediastinum: The cardiomediastinal silhouette is normal. The great vessels of the thorax are normal. IMPRESSION: No acute cardiopulmonary process. Electronically signed by: Jose L Pena MD (04/08/2019 5:41 AM) [facility] DICTATED AND SIGNED BY: JOSE L PENA MD DATE: 04/08/19 0541 CC: JEROME BLANC MD; KHOI AGUERO MD ~ Course & Med Decision Making Course & Med Decision Making Pertinent Labs and Imaging studies reviewed. (See chart for details) Discussed presentation, testing and tx. plan with .. Will admit here to ICU. [] Final Impression Final Impression 1. Mental status change- OD Flexeril and ETOH 2. History of polysubstance abuse[] 3. Hx. HIV- 2012 4. Tobacco Use 5. + Tox MJ, Cocaine, Amphetamine Dragon Disclaimer Dragon Disclaimer This electronic medical record was generated, in whole or in part, using a voice recognition dictation system. Dragon Disclaimer This chart was dictated in whole or in part using Voice Recognition software in a busy, high-work load, and often noisy Emergency Department environment. It may contain unintended and wholly unrecognized errors or omissions. KHOI AGUERO MD Apr 08, 2019 05:02
[2019-04-08 05:18] LABS: BASO % 1 % (0-3); EOS % 0 % (0-3); HEMATOCRIT 45.6 % (39.0-53.0); HEMOGLOBIN 15.6 g/dL (13.0-17.5); LYMPH # 1.8 x10^3/uL (1.0-4.8); LYMPH % 34 % (24-48); MEAN CORPUSCULAR HEMOGLOBIN 29 pg (25-35); MEAN CORPUSCULAR HGB CONC 34 g/dL (31-37); MEAN CORPUSCULAR VOLUME 86 fL (79-100); MONO # 0.3 x10^3/uL (0.0-1.1); MONO % 6 % (0-9); NEUT # 3.2 x10^3uL (1.8-7.7); NEUT % 60 % (31-73); PLATELET COUNT 211 x10^3/uL (140-400); RED BLOOD COUNT 5.31 x10^6/uL (4.30-5.70); RED CELL DISTRIBUTION WIDTH 12.8 % (11.5-14.5); WHITE BLOOD COUNT 5.3 x10^3/uL (4.0-11.0)
[2019-04-08] MEDS ORDERED: ABAC1TAB13 PO (05:29)
[2019-04-08] MEDS ORDERED: MVI, ADULT NO.4 WITH VIT K 10 ML, FOLIC ACID SYRINGE for ER 1 MG, THIAMINE INJ 100 MG i... IV ONE ×4 (05:30)
[2019-04-08 05:39] LABS: ALBUMIN 4.1 g/dL (3.4-5.0); CALCIUM 8.7 mg/dL (8.5-10.1); CREATININE 1.1 mg/dL (0.7-1.3); DIRECT BILIRUBIN 0.1 mg/dL (0.0-0.2); GFR 99.5; MAGNESIUM 1.9 mg/dL (1.8-2.4); POTASSIUM 3.6 mmol/L (3.5-5.1); TOTAL BILIRUBIN 0.3 mg/dL (0.2-1.0); TOTAL PROTEIN 7.8 g/dL (6.4-8.2)
[2019-04-08 05:41] LABS: AMPHETAMINE/METHAMPHETAMINE POS (NEG); BARBITURATES NEG (NEG); BENZODIAZEPINES NEG (NEG); CANNABINOIDS POS (NEG); COCAINE POS (NEG); METHADONE NEG (NEG); OPIATES NEG (NEG); PHENCYCLIDINE NEG (NEG)
--- NOTE | 2019-04-08 05:43 | RAD ---
PORTABLE CHEST 1V INDICATION: . COMPARISON STUDY: None. FINDINGS: Lungs: Normal lung volume. No pulmonary mass or consolidation. The tracheobronchial tree and hilar structures are normal. Pleura: No pleural effusion or pneumothorax. Heart and Mediastinum: The cardiomediastinal silhouette is normal. The great vessels of the thorax are normal. IMPRESSION: No acute cardiopulmonary process. Electronically signed by: Larry Pena MD (04/08/2019 5:41 AM) [facility]
[2019-04-08 05:56] LABS: BACTERIA,URINE FEW /HPF (0-FEW); BILIRUBIN,URINE NEG (NEG); CLARITY,URINE HAZY; COLOR,URINE YELLOW; GLUCOSE,URINE NEG (NEG); NITRITE,URINE NEG (NEG); UROBILINOGEN,URINE 0.2 mg/dL (0.2 mg/dL)
[2019-04-08 05:57] LABS: HYALINE CASTS, URINE OCC /HPF; SQUAMOUS EPITHELIAL CELL,UR OCC /LPF
[2019-04-08] MEDS ORDERED: SODIUM BICARB ADULT 8.4% 50 MEQ/50 ML DISP.SYRIN. IV ONE (06:00)
[2019-04-08 06:10] LABS: ACETAMIN < 2.0 mcg/mL (10-30)
[2019-04-08 06:12] LABS: SEDIMENTATION RATE 2 (0-15)
[2019-04-08 06:31] LABS: BGAS PH 7.34 (7.35-7.46)
[2019-04-08] MEDS: IPRATRPIUM/ALBUTEROL 0.5/2.5MG 3 ML NEBU. NEB SCH ×2 (06:36→09:21)
--- NOTE | 2019-04-08 06:41 | EKG ---
[address] [address] Test Date: 2019-04-08 Test Time: 05:18:35 Pat Name: KRISTI WEISS Department: Room: Gender: M Disability Attorney: : 1995 Requested By: KHOI AGUERO Order Number: [id number] Reading MD: Guzman Talavera MD Measurements Intervals [place] Rate: 82 P: 62 HI: 158 QRS: 66 QRSD: 90 T: 41 QT: 354 QTc: 416 Interpretive Statements SINUS RHYTHM Electronically Signed On 04-23-2019 21:11:42 CDT by Guzman Talavera MD
[2019-04-08] MEDS ORDERED: MVI, ADULT NO.4 WITH VIT K 10 ML, FOLIC ACID SYRINGE for ER 1 MG, THIAMINE INJ 100 MG i... IV SCH ×4 (09:00)
[2019-04-08 09:42] VITALS: BP 127/66
[2019-04-08 10:07] LABS: ACETAMIN < 2.0 mcg/mL (10-30); SALIC 2.3 mg/dL (2.8-20.0)
[2019-04-08 10:56] VITALS: BP 102/54
[2019-04-08 11:55] VITALS: BP 91/48
[2019-04-08 13:00] VITALS: BP 108/63
[2019-04-08 14:00] VITALS: BP 116/58
--- NOTE | 2019-04-08 15:12 | HP ---
ADMIT DATE: 04/08/2019 HISTORY OF PRESENT ILLNESS: This is a 23-year-old male who came in through the Emergency Room. Apparently, he had been drinking all night ____, tequila, ____ vodka, a couple of pints ____. Also, taking cocaine according to his scanned drug. The patient also notes that he took approximately, possibly five to twenty 10 mg Flexeril. The patient notes that he is very tired, worn out. The patient has been positive for HIV since 2012, although he has been taking his medication Triumeq for the past 2 weeks. He goes to for I and D. The patient apparently has polysubstance abuse, extremely sedated. The patient was admitted to the hospital for further evaluation and treatment. PAST MEDICAL HISTORY: Alcoholism, HIV since 08/2012, smoking greater than a pack a day, marijuana as well as cocaine, heavy alcohol use. FAMILY HISTORY: Unremarkable. SOCIAL HISTORY: As noted above. Full code. ALLERGIES: No known drug allergies listed. REVIEW OF SYSTEMS: Too tired or too unresponsive with his overuse of the Flexeril. PHYSICAL EXAMINATION: VITAL SIGNS: Blood pressure 126/76, respiratory rate 22, pulse 76. He is afebrile. Oxygen saturation good. HEENT: Head: Atraumatic, normocephalic. Eyes: PERRL. They were reactive to light. Mouth and throat: Dry. NECK: Supple. LUNGS: Diminished, but clear. CARDIOVASCULAR: Stable. ABDOMEN: Soft, nontender, no rebound or guarding. Positive bowel sounds, no hepatosplenomegaly. EXTREMITIES: No clubbing, cyanosis or edema. NEUROLOGIC: The patient is arousable, but falls right back to sleep. PLAN: Otherwise, he had been placed on banana bag, fluids, and make further evaluation on him as indicated. Polysubstance abuse, alcohol abuse, overdose of Flexeril. The patient will be monitored carefully in the ICU and make further evaluation on him as indicated. JEROME BLANC MD DR: JENN/adelia JOB#: [id number] / [id number]
[2019-04-08 15:55] VITALS: BP 98/52
[2019-04-09] MEDS ORDERED: DOLUTEGRAVIR PO SCH (09:00)
[2019-04-09] MEDS ORDERED: LAMIVUDI PO SCH (09:00)
[2019-04-09] MEDS ORDERED: ABACAVIR PO SCH (09:00)
[2019-04-17 06:32] LABS: BGAS PH 7.43 (7.35-7.46)
== END 2019-04-08 17:15 | disposition home or self-care (01) ==
LOC: ER 04:43 → INTOOBSV 05:30 → ICU 05:30
PROVIDERS: ADMIT Internal Medicine; ATTEND Family Medicine
DX: F10.129 Alcohol abuse with intoxication, unspecified (principal); F12.90 Cannabis use, unspecified, uncomplicated; F19.10 Other psychoactive substance abuse, uncomplicated; R41.82 Altered mental status, unspecified; F14.90 Cocaine use, unspecified, uncomplicated; Z21 Asymptomatic human immunodeficiency virus [HIV] infection status; Z87.891 Personal history of nicotine dependence
CPT/HCPCS: 36415; 71045; 80048; 80076; 80307; 80329; 81001; 82550; 82803; 83690; 83735; 83880; 84443; 84484; 85025; 85610; 85651; 85730; 93005; 96361; 96365; 96375; 99284; G0378; G0480; J7120; G0379; 82003; 99285-25; J7030

== ENCOUNTER 2019-05-16 03:19 | Emergency (ER) | payer BC ==
[~2019-05-16] VITALS: Ht 170.2 cm; Wt 92.7 kg
[~2019-05-16 03:19] MED LIST changes: +ABAC1TAB13 PO
[2019-05-16] MEDS ORDERED: HYDR-3165 PO (03:41)
[2019-05-16 03:45] VITALS: BP 136/96
--- NOTE | 2019-05-16 03:45 | PHYS DOC ---
Past History Past Medical History: Alcoholism, HIV Additional Past Medical Histor: HIV diagnosed 2012 Past Surgical History: Other Additional Past Surgical Histo: Knee and foot Smoking: Greater than 1 pack/day Alcohol Use: Occasionally Drug Use: Cocaine, Marijuana Adult General Chief Complaint Chief Complaint: DENTAL PROBLEM HPI HPI Patient is a 23-year-old male toothache bilateral thinks was some teeth are coming in sideways. Had a fever last week went to [facility] got amoxicillin still having pain really just here because he woke up he was having pain he wants some pain medicine he is hoping to see a dentist soon he has hiv viral load undetectable Allergies Allergies Allergies Coded Allergies Type Severity Reaction Last Updated Verified No Known Drug Allergies 04/08/19 No Physical Exam Physical Exam Constitutional: Well developed, well nourished, no acute distress, non-toxic appearance. [] HENT: Normocephalic, atraumatic, bilateral external ears normal, oropharynx moist, no oral exudates, nose normal. [] poor dentition, molar posteiorly mild crooked growth but no abscess Eyes: PERRLA, EOMI, conjunctiva normal, no discharge. [] Neck: Normal range of motion, no tenderness, supple, no stridor. [] Extremities: No tenderness, no cyanosis, no clubbing, ROM intact, no edema. [] Neurologic: Alert and oriented X 3, normal motor function, normal sensory function, no focal deficits noted. [] Psychologic: Affect normal, judgement normal, mood normal. [] EKG EKG [] Radiology/Procedures Radiology/Procedures [] Course & Med Decision Making Course & Med Decision Making Pertinent Labs and Imaging studies reviewed. (See chart for details) []afebrile well appearing pain control provided f/u with dentist Nesha Disclaimer Nesha Disclaimer This electronic medical record was generated, in whole or in part, using a voice recognition dictation system. Departure Departure: Impression: Primary Impression: Pain, dental Disposition: 01 HOME, SELF-CARE Condition: STABLE Referrals: JEROME BLANC MD (PCP) Patient Instructions: Toothache-Brief Scripts Hydrocodone Bit/Acetaminophen (NORCO 5-325 TABLET) 1 Each Tablet 1-2 TAB PO Q4-6HRS PRN for PAIN, #12 TAB Prov: DIRK LUGO MD 05/16/19 DIRK LUGO MD May 16, 2019 03:45
== END 2019-05-16 03:45 | disposition home or self-care (01) ==
LOC: ER 03:19
DX: K08.89 Other specified disorders of teeth and supporting structures (principal); F10.20 Alcohol dependence, uncomplicated; F17.200 Nicotine dependence, unspecified, uncomplicated; Y90.9 Presence of alcohol in blood, level not specified
CPT/HCPCS: 99283

== ENCOUNTER 2019-06-03 03:46 | Emergency (ER) | payer BC ==
[~2019-06-03] VITALS: Ht 170.2 cm; Wt 99.8 kg
[2019-06-03 03:50] VITALS: BP 141/89
[2019-06-03] MEDS ORDERED: HYDR2TAB31 PO (04:14)
[2019-06-03] MEDS ORDERED: MELO7.5T29 PO (04:14)
[2019-06-03] MEDS ORDERED: AMOX1TAB61 PO (04:14)
--- NOTE | 2019-06-03 04:14 | PHYS DOC ---
Past History Past Medical History: Alcoholism, HIV Additional Past Medical Histor: HIV diagnosed 2012 Past Surgical History: Other Additional Past Surgical Histo: Knee and foot Smoking: Greater than 1 pack/day Alcohol Use: Occasionally Drug Use: Cocaine, Marijuana Adult General Chief Complaint Chief Complaint: DENTAL PROBLEM HPI HPI Patient is a 23-year-old male presents with left-sided dental pain. Patient has been undergoing treatment for this for the past several weeks and has been on several rounds of antibiotics to include amoxicillin, azithromycin, and is currently on clindamycin. Reports that his current Percocet is not adequately treating the pain. Denies any fever denies any foul taste in the mouth. Denies any difficulty breathing or swallowing. He reports that it is 2 teeth on the bottom and 1 tooth on the top. He has been to a dentist and has been told that they cannot treat him more fully until the infection is gone. He does have follow-up for this with a dentist next week. Pain is reported as severe. Patient reports he has a history of HIV, is currently on medication for this, and his viral load is undetectable.[] Review of Systems Review of Systems Constitutional: Denies fever or chills [] Eyes: Denies change in visual acuity, redness, or eye pain [] HENT: Denies nasal congestion or sore throat, see history of present illness [] Respiratory: Denies cough or shortness of breath [] Cardiovascular: No chest pain or palpitations[] GI: Denies abdominal pain, nausea, vomiting, bloody stools or diarrhea [] : Denies dysuria or hematuria [] Musculoskeletal: Denies back pain or joint pain [] Integument: Denies rash or skin lesions [] Neurologic: Denies headache, focal weakness or sensory changes [] Endocrine: Denies polyuria or polydipsia [] All other systems were reviewed and found to be within normal limits, except as documented in this note. Allergies Allergies Allergies Coded Allergies Type Severity Reaction Last Updated Verified No Known Drug Allergies 04/08/19 No Physical Exam Physical Exam Constitutional: Well developed, well nourished, no acute distress, non-toxic appearance. [] HENT: Normocephalic, atraumatic, bilateral external ears normal, oropharynx moist, no oral exudates, nose normal. Tooth #15, 17, and 18 have tenderness to p ercussion. There is no drainable abscess visible. There is no swelling of the floor of the mouth. Uvula is midline. No sinus tenderness to percussion [] Eyes: PERRLA, EOMI, conjunctiva normal, no discharge. [] Neck: Normal range of motion, no tenderness, supple, no stridor. No cervical lymphadenopathy[] Cardiovascular:Heart rate regular rhythm, no murmur [] Lungs & Thorax: Bilateral breath sounds clear to auscultation [] Abdomen: Not examined. [] Skin: Warm, dry, no erythema, no rash. [] Back: No tenderness, no CVA tenderness. [] Extremities: No tenderness, no cyanosis, no clubbing, ROM intact, no edema. [] Neurologic: Alert and oriented X 3, normal motor function, normal sensory function, no focal deficits noted. [] Psychologic: Affect normal, judgement normal, mood normal. [] EKG EKG [] Radiology/Procedures Radiology/Procedures [] Course & Med Decision Making Course & Med Decision Making Pertinent Labs and Imaging studies reviewed. (See chart for details) ED course: Patient arrived, was placed in bed, and tolerated exam well. Patient was given a dose of Augmentin along with pain medicine. Findings and plan were discussed with the patient who voiced understanding. All questions were answered. He was discharged in improved condition. Medical decision making: Patient with dental pain that seems to be refractory to current therapy. This may be in part due to his HIV straight. There is no evidence of systemic toxicity, no Adán's angina, no meningitis. We will attempt a different antibiotic and better pain management to include NSAIDs.[] Dragon Disclaimer Dragon Disclaimer This electronic medical record was generated, in whole or in part, using a voice recognition dictation system. Departure Departure: Impression: Primary Impression: Pain, dental Disposition: HOME, SELF-CARE Condition: IMPROVED Referrals: JEROME BLANC MD (PCP) Follow-up in 2 days Patient Instructions: Dental Pain Additional Instructions: Follow-up with your regular doctor or dentist in 2 days. Return to the ER if wor sening pain, fever of more than 101, difficulty swallowing or breathing Scripts Hydromorphone Hcl (DILAUDID) 2 Mg Tablet 1 TAB PO PRN BID PRN for SEVERE PAIN 7-10 MDD 2 Tablet(s) for 5 Days, #10 TAB 0 Refills Prov: TI GALLAGHER DO 06/03/19 Meloxicam (MELOXICAM) 7.5 Mg Tablet 7.5 MG PO DAILY for PAIN, #20 TAB Prov: TI GALLAGHER DO 06/03/19 Amoxicillin/Potassium Clav (AUGMENTIN 875-125 TABLET) 1 Each Tablet 1 TAB PO BID for dental infection for 10 Days, #20 TAB 0 Refills Prov: TI GALLAGHER DO 06/03/19 TI GALLAGHER DO Jun 03, 2019 04:14
[2019-06-03] MEDS ORDERED: KETOROLAC 30 MG/ML VIAL. IM ONE (04:30)
[2019-06-03] MEDS ORDERED: AMOXICILLIN/K CLAV 875/125MG TABLET. PO ONE (04:30)
[2019-06-03] MEDS ORDERED: HYDROmorphone PF 1 MG/ML DISP.SYRIN IM ONE (04:30)
== END 2019-06-03 04:30 | disposition home or self-care (01) ==
LOC: ER 03:46
DX: K08.89 Other specified disorders of teeth and supporting structures (principal); F17.200 Nicotine dependence, unspecified, uncomplicated; F10.20 Alcohol dependence, uncomplicated; Y90.9 Presence of alcohol in blood, level not specified
CPT/HCPCS: 96372; 99284; J1170; J1885

== ENCOUNTER 2019-06-24 04:55 | Emergency (ER) | payer BC ==
[~2019-06-24] VITALS: Ht 170.2 cm; Wt 99.1 kg
[2019-06-24 04:55] VITALS: BP 141/89
[~2019-06-24 04:55] MED LIST changes: +AMOX1TAB61 PO; +HYDR2TAB31 PO; +MELO7.5T29 PO
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
[2019-06-24] MEDS ORDERED: IV RINGERS SOLUTION,LACTATED 1,000 ML IV SCH (05:30)
[2019-06-24] MEDS ORDERED: clindamycin (05:56)
[2019-06-24 06:28] LABS: BASO % 1 % (0-3); EOS # 0.1 x10^3/uL (0.0-0.7); EOS % 1 % (0-3); HEMATOCRIT 45.9 % (39.0-53.0); HEMOGLOBIN 15.1 g/dL (13.0-17.5); LYMPH # 2.5 x10^3/uL (1.0-4.8); LYMPH % 40 % (24-48); MEAN CORPUSCULAR HEMOGLOBIN 29 pg (25-35); MEAN CORPUSCULAR HGB CONC 33 g/dL (31-37); MEAN CORPUSCULAR VOLUME 87 fL (79-100); MONO # 0.5 x10^3/uL (0.0-1.1); MONO % 8 % (0-9); NEUT # 3.2 x10^3uL (1.8-7.7); NEUT % 50 % (31-73); PLATELET COUNT 196 x10^3/uL (140-400); RED BLOOD COUNT 5.27 x10^6/uL (4.30-5.70); RED CELL DISTRIBUTION WIDTH 13.2 % (11.5-14.5); WHITE BLOOD COUNT 6.4 x10^3/uL (4.0-11.0)
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
[2019-06-24 06:38] LABS: ALBUMIN 3.7 g/dL (3.4-5.0); C REACTIVE PROTEIN 1.7 mg/L (0-3.3); CALCIUM 8.6 mg/dL (8.5-10.1); CREATININE 0.9 mg/dL (0.7-1.3); DIRECT BILIRUBIN 0.1 mg/dL (0.0-0.2); GFR 125.4; MAGNESIUM 2.1 mg/dL (1.8-2.4); POTASSIUM 3.7 mmol/L (3.5-5.1); TOTAL BILIRUBIN 0.2 mg/dL (0.2-1.0); TOTAL PROTEIN 6.9 g/dL (6.4-8.2)
[2019-06-24 06:44] LABS: BARBITURATES NEG (NEG); BENZODIAZEPINES NEG (NEG); CANNABINOIDS POS (NEG); COCAINE NEG (NEG); METHADONE NEG (NEG); OPIATES POS (NEG); PHENCYCLIDINE NEG (NEG)
[2019-06-24 06:45] LABS: AMPHETAMINE/METHAMPHETAMINE NEG (NEG)
[2019-06-24 06:57] LABS: BACTERIA,URINE FEW /HPF (0-FEW); BILIRUBIN,URINE NEG (NEG); CLARITY,URINE CLEAR; COLOR,URINE YELLOW; GLUCOSE,URINE NEG (NEG); NITRITE,URINE NEG (NEG); RBC,URINE 0 /HPF (0-2); UROBILINOGEN,URINE 0.2 mg/dL (0.2 mg/dL)
[2019-06-24] MEDS ORDERED: KETOROLAC 30 MG/ML VIAL. IV ONE (07:00)
[2019-06-24] MEDS ORDERED: OXAP600T2 PO (07:03)
[2019-06-24] MEDS ORDERED: AMOX500T PO (07:03)
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
[2019-06-24 07:36] LABS: SEDIMENTATION RATE 2 (0-15)
--- NOTE | 2019-06-24 19:04 | EKG ---
[address] [address] Test Date: 2019-06-24 Test Time: 05:05:07 Pat Name: KRISTI WEISS Department: Room: Gender: M [employer]: : 1995 Requested By: KHOI AGUERO Order Number: [id number] Reading MD: Measurements Intervals [place] Rate: 68 P: 52 AL: 148 QRS: 52 QRSD: 90 T: 35 QT: 372 QTc: 400 Interpretive Statements SINUS RHYTHM NO SPECIFIC ECG ABNORMALITIES RI6.01 No previous ECG available for comparison
== END 2019-06-24 07:10 | disposition home or self-care (01) ==
LOC: ER 04:55
DX: S09.8XXA Other specified injuries of head, initial encounter (principal); K02.9 Dental caries, unspecified; R55 Syncope and collapse; F17.200 Nicotine dependence, unspecified, uncomplicated; Z21 Asymptomatic human immunodeficiency virus [HIV] infection status; W18.39XA Other fall on same level, initial encounter; Y93.89 Activity, other specified; Y92.89 Other specified places as the place of occurrence of the external cause; Y99.8 Other external cause status
CPT/HCPCS: 36415; 70450; 70486; 71046; 72125; 80048; 80076; 80307; 81001; 82550; 83690; 83735; 84443; 84484; 85025; 85379; 85610; 85651; 85730; 86140; 87086; 93005; 96374; 99285; J1885; J7120

== ENCOUNTER 2019-09-02 09:45 | Emergency (ER) | payer BC ==
[~2019-09-02] VITALS: Ht 170.2 cm; Wt 93.6 kg
[2019-09-02 09:45] VITALS: BP 129/97
[~2019-09-02 09:45] MED LIST changes: +AMOX500T PO; +OXAP600T2 PO; +clindamycin
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
[2019-09-02] MEDS ORDERED: HYDROcodone/APAP 5/325MG 1 TAB TABLET PO ONE (11:00)
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
[2019-09-02] MEDS ORDERED: HYDR-2155 PO (11:42)
[2019-09-02] MEDS ORDERED: DICL75TA PO (11:42)
== END 2019-09-02 11:53 | disposition home or self-care (01) ==
LOC: ER 09:45
DX: M25.512 Pain in left shoulder (principal); M89.8X1 Other specified disorders of bone, shoulder; F17.210 Nicotine dependence, cigarettes, uncomplicated; Y04.8XXA Assault by other bodily force, initial encounter; Y93.89 Activity, other specified; Y92.89 Other specified places as the place of occurrence of the external cause; Y99.8 Other external cause status
CPT/HCPCS: 29240; 73030; 73200; 99284

== ENCOUNTER 2020-05-24 15:24 | Emergency (ER) | payer BC ==
[~2020-05-24] VITALS: Ht 170.2 cm; Wt 93.6 kg
[~2020-05-24 15:24] MED LIST changes: +DICL75TA PO; +HYDR-2155 PO
[2020-05-24 15:44] VITALS: BP 142/90
[2020-05-24] MEDS ORDERED: NAPR-514 PO (15:56)
[2020-05-24] MEDS ORDERED: HYDR-2759 PO (15:56)
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
== END 2020-05-24 16:09 | disposition home or self-care (01) ==
LOC: ER 15:24
DX: M25.562 Pain in left knee (principal); F12.90 Cannabis use, unspecified, uncomplicated; F17.200 Nicotine dependence, unspecified, uncomplicated; Z98.890 Other specified postprocedural states; Z21 Asymptomatic human immunodeficiency virus [HIV] infection status
CPT/HCPCS: 29505; 99283

== ENCOUNTER 2021-01-28 02:55 | Emergency (ER) | payer SELFPAY ==
[~2021-01-28] VITALS: Ht 170.2 cm; Wt 100.6 kg
[~2021-01-28 02:55] MED LIST changes: +HYDR-2759 PO; +NAPR-514 PO
--- NOTE | 2021-01-28 03:27 | PHYS DOC ---
Past History Past Medical History: HIV Additional Past Medical Histor: HIV diagnosed 2012; dental caries Past Surgical History: No Surgical History Additional Past Surgical Histo: Knee and foot (lt knee and rt foot) Smoking: Greater than 1 pack/day Alcohol Use: Occasionally Drug Use: Marijuana Adult General Chief Complaint Chief Complaint: HEADACHE HPI HPI Patient is a 25-year-old male with a past medical history significant for HIV on HIV medications who follows at with infectious disease for his HIV who presents with a chief complaint of headache. States he has had this headache over the last 2 to 4 weeks, left-sided, dull and achy in nature, 8 out of 10 most the time with occasional times of improvement down to 5 out of 10. Denies any radiation, neck pain, chest pain, shortness of breath, abdominal pain, vomiting, dysuria, hematuria, blood in the stool, diarrhea. Denies any recent traumas, travels, fevers. Denies any numbness/weakness/tingling, confusion, facial droop, slurred speech, trouble sitting, standing or walking. States has been eating and drinking approximately normal for him. States he is making urine and stool normally for him. Denies any alcohol, tobacco or drug use. Review of Systems Review of Systems Review of systems otherwise unremarkable except noted in HPI Current Medications Current Medications Current Medications Medications (Trade) Dose Ordered Sig/Gurdeep Start Time Stop Time Status Last Admin Dose Admin Lactated Ringer's 1,000 ml @ 1,000 mls/hr 1X ONCE 01/28/21 03:30 01/28/21 04:29 UNV Prochlorperazine Edisylate (Compazine) 10 mg 1X ONCE 01/28/21 03:30 01/28/21 03:31 UNV Allergies Allergies Allergies Coded Allergies Type Severity Reaction Last Updated Verified No Known Drug Allergies 06/24/19 No Physical Exam Physical Exam Constitutional: Well developed, well nourished, no acute distress, non-toxic appearance. [] HENT: Normocephalic, atraumatic, bilateral external ears normal, oropharynx moist, no oral exudates, nose normal. [] Eyes: PERRLA, EOMI, conjunctiva normal, no discharge. [] Neck: Normal range of motion, no tenderness, supple, no stridor. [] Cardiovascular:Heart rate regular rhythm, no murmur [] Lungs & Thorax: Bilateral breath sounds clear to auscultation [] Abdomen: Bowel sounds normal, soft, no tenderness, no masses, no pulsatile masses. [] Skin: Warm, dry, no erythema, no rash. [] Back: No tenderness, no CVA tenderness. [] Extremities: No tenderness, no cyanosis, no clubbing, ROM intact, no edema. [] Neurologic: Alert and oriented X 3, normal motor function, normal sensory function, able to sit, stand and walk without issue, no focal deficits noted. [] Psychologic: Affect normal, judgement normal, mood normal. [] EKG EKG [] Radiology/Procedures Radiology/Procedures [] CT HEAD INDICATION: Headache COMPARISON: 06/07/2019 Exposure: One or more of the following individualized dose reduction techniques were utilized for this examination: 1. Automated exposure control 2. Adjustment of the mA and/or kV according to patient size 3. Use of iterative reconstruction technique TECHNIQUE: 5 mm contiguous axial images were obtained from the skull base to the vertex in both bone and soft tissue algorithm. FINDINGS: No abnormal attenuation within the brain parenchyma. No evidence of acute intracranial hemorrhage. No extra-axial fluid collections. No mass effect or midline shift. Ventricular size is appropriate. Basal cist erns are patent. No fractures identified.Bah-white differentiation is preserved.Globes and orbits are within normal limits. Paranasal sinuses and mastoid air cells are clear. IMPRESSION: Unremarkable CT examination of the head without contrast, as above. Specifically, no evidence of an acute intracranial abnormality. Electronically signed by: Jameel Alanis MD (01/28/2021 4:05 AM) [id number] EXAM: CHEST 1 VIEW History: Cardiac workup COMPARISON: 06/07/2019 TECHNIQUE: Single portable radiograph of the chest FINDINGS: The cardiac silhouette is unremarkable. The lungs are clear bilaterally. The costophrenic sulci are clear and well demarcated. IMPRESSION: No radiographic evidence of an acute cardiopulmonary process. Electronically signed by: Jameel Alanis MD (01/28/2021 4:07 AM) [id number] Heart Score C/O Chest Pain: No Risk Factors: Risk Factors: DM, Current or recent (<one month) smoker, HTN, HLP, family history of CAD, obesity. Risk Scores: Risk Factors: DM, Current or recent (<one month) smoker, HTN, HLP, family history of CAD, obesity. Course & Med Decision Making Course & Med Decision Making Patient is a 25-year-old male, with a past medical history of HIV who presents with 2 weeks of headache Vital signs notable for hypertension. Physical exam noted above. Patient placed on the monitor with IV access established and headache cocktail given. Laboratory analysis not concerning. CT of the head not concerning. Chest x-ray not concerning. Patient fell asleep after headache cocktail. On reassessment patient was awake, alert and oriented. Can take p.o. States he was feeling much better and was ready to be discharged home. Discussed all findings with patient. Advised to follow-up in the morning with his primary care physician/infectious disease doctor. Gave strict return precautions to the ED. Patient grateful, verbalized understanding and agreed with plan of discharge. Dragon Disclaimer Dragon Disclaimer This electronic medical record was generated, in whole or in part, using a voice recognition dictation system. Departure Departure: Impression: Primary Impression: Migraine Disposition: 20 Condition: GOOD Referrals: JEROME BLANC MD (PCP) Patient Instructions: Migraine Headache Additional Instructions: Thank you for coming into the emergency department tonight and allowing us to take care of you. Please read all the attached information very carefully to go back over what we discussed. Please call your primary care physician and/or your infectious disease doctor first thing in the morning to update on ED visit and set up follow-up appointments with both the sooner you can. Please come back to the ED with new or concerning symptoms as discussed. RJ ACOSTA MD Jan 28, 2021 03:27
[2021-01-28 03:56] LABS: BASO % 0 % (0-3); EOS # 0.1 x10^3/uL (0.0-0.7); EOS % 1 % (0-3); HEMATOCRIT 44.3 % (39.0-53.0); LYMPH # 2.9 x10^3/uL (1.0-4.8); LYMPH % 51 % (24-48); MEAN CORPUSCULAR HEMOGLOBIN 29 pg (25-35); MEAN CORPUSCULAR HGB CONC 34 g/dL (31-37); MEAN CORPUSCULAR VOLUME 87 fL (79-100); MONO # 0.5 x10^3/uL (0.0-1.1); MONO % 8 % (0-9); NEUT # 2.3 x10^3uL (1.8-7.7); NEUT % 40 % (31-73); PLATELET COUNT 183 x10^3/uL (140-400); RED BLOOD COUNT 5.11 x10^6/uL (4.30-5.70); WHITE BLOOD COUNT 5.8 x10^3/uL (4.0-11.0)
[2021-01-28] MEDS ORDERED: KETOROLAC 15 MG/ML VIAL. IVP ONE (04:00)
[2021-01-28] MEDS ORDERED: ONDANSETRON PF 4 MG/2 ML VIAL. IVP ONE (04:00)
[2021-01-28] MEDS ORDERED: IV RINGERS SOLUTION,LACTATED 1,000 ML IV ONE (04:00)
[2021-01-28] MEDS ORDERED: MORPHINE SULFATE 4 MG/ML DISP.SYRIN. IV ONE (04:00)
[2021-01-28] MEDS ORDERED: PROCHLORPERAZINE 10 MG/2 ML VIAL. IV ONE (04:00)
[2021-01-28] MEDS ORDERED: diphenhydrAMINE 50 MG/ML VIAL IVP ONE (04:00)
[2021-01-28 04:06] LABS: CALCIUM 8.9 mg/dL (8.5-10.1); CREATININE 0.9 mg/dL (0.7-1.3); GFR 123.4; POTASSIUM 4.6 mmol/L (3.5-5.1)
--- NOTE | 2021-01-28 04:07 | RAD ---
CT HEAD INDICATION: Headache COMPARISON: 06/07/2019 Exposure: One or more of the following individualized dose reduction techniques were utilized for thi s examination: 1. Automated exposure control 2. Adjustment of the mA and/or kV according to patient size 3. Use of iterative reconstruction technique TECHNIQUE: 5 mm contiguous axial images were obtained from the skull base to the vertex in both bone and soft tissue algorithm. FINDINGS: No abnormal attenuation within the brain parenchyma. No evidence of acute intracranial hemorrhage. No extra-axial fluid collections. No mass effect or midline shift. Ventricular size is appropriate. Basal cisterns are patent. No fractures identified.Bah-white differentiation is preserved.Globes and orbits are within normal l imits. Paranasal sinuses and mastoid air cells are clear. IMPRESSION: Unremarkable CT examination of the head without contrast, as above. Specifically, no evidence of an acute intracranial abnormality. Electronically signed by: Jameel Alanis MD (01/28/2021 4:05 AM) [id number]
--- NOTE | 2021-01-28 04:10 | RAD ---
EXAM: CHEST 1 VIEW History: Cardiac workup COMPARISON: 06/07/2019 TECHNIQUE: Single portable radiograph of the chest FINDINGS: The cardiac silhouette is unremarkable. The lungs are clear bilaterally. The costophrenic sulci are clear and well demarcated. IMPRESSION: No radiographic evidence of an acute cardiopulmonary process. Electronically signed by: Jameel Alanis MD (01/28/2021 4:07 AM) [id number]
[2021-01-28 04:12] LABS: ALBUMIN 3.8 g/dL (3.4-5.0); ALBUMIN/GLOBULIN RATIO 1.4 (1.0-1.7); TOTAL BILIRUBIN 0.1 mg/dL (0.2-1.0); TOTAL PROTEIN 6.6 g/dL (6.4-8.2)
[2021-01-28 04:35] VITALS: BP 130/74
--- NOTE | 2021-01-28 06:40 | EKG ---
[facility] [address] [place] [address] Test Date: 2021-01-28 Test Time: 03:44:12 Pat Name: KRISTI WEISS Department: Room: Gender: M Consumer Lender: : 1995 Requested By: RJ ACOSTA Order Number: [id number] Reading MD: Camilo Eubanks Measurements Intervals [place] Rate: 61 P: 48 WV: 148 QRS: 51 QRSD: 86 T: 30 QT: 386 QTc: 390 Interpretive Statements SINUS RHYTHM Electronically Signed On 01-29-2021 11:52:34 CDT by Camilo Eubanks
[2021-01-29] MEDS ORDERED: HYDR-2155 PO (03:04)
[2021-01-29] MEDS ORDERED: IBUP600T16 PO (03:04)
[2021-01-29] MEDS ORDERED: AMOX1TAB61 PO (03:58)
== END 2021-01-28 04:40 | disposition home or self-care (01) ==
LOC: ER 02:55
DX: G43.909 Migraine, unspecified, not intractable, without status migrainosus (principal); Z87.891 Personal history of nicotine dependence
CPT/HCPCS: 36415; 70450; 71045; 80053; 83605; 84484; 85025; 93005; 96361; 96374; 96375; 99285; J0780; J1200; J1885; J2270; J2405; J7120

== ENCOUNTER 2021-01-29 02:15 | Emergency (ER) | payer SELFPAY ==
[~2021-01-29] VITALS: Ht 170.2 cm; Wt 100.6 kg
--- NOTE | 2021-01-29 02:29 | PHYS DOC ---
Past History Past Medical History: HIV Additional Past Medical Histor: Headache, Dental Caries, right leg infection- needed wound Vac. Past Surgical History: Other Additional Past Surgical Histo: Wart removal Smoking: Greater than 1 pack/day Alcohol Use: Occasionally Drug Use: Marijuana Adult General Chief Complaint Chief Complaint: HEADACHE HPI HPI Patient is a 25-year-old male with a past medical history of HIV who presents to the emergency department with a chief complaint of ear, facial and temporal pain/headache. States has been going on over the last 3 weeks to a month and seems to have started just after he had his wisdom tooth pulled. States it does come and go and can usually take some Tylenol or ibuprofen and provide relief. States over the last couple of weeks he has had it more consistently. States he went to where his infectious disease doctor was had imaging of his head and work-up and talk to his infectious disease doctor and was sent home. States he came into this emergency department yesterday and got some medicine for his headache which completely resolved. States he was doing good all last night and yesterday but woke up about an hour ago with the same symptoms. Denies any fevers, changes in vision, neck pain or stiffness, pain or trouble swallowing, chest pain, shortness of breath, abdominal pain, nausea, vomiting, diarrhea, dysuria, hematuria or blood in the stool. States that his last CD4/CD8 counts were about a month ago and were normal for him. Denies any recent traumas, travels, illnesses, known ill contacts or Covid/flu/cold symptoms. Denies any numbness/weakness/tingling, confusion, slurred speech, trouble sitting, standing or walking. Review of Systems Review of Systems Review of systems otherwise unremarkable except noted in HPI Allergies Allergies Allergies Coded Allergies Type Severity Reaction Last Updated Verified No Known Drug Allergies 06/24/19 No Physical Exam Physical Exam Constitutional: Well developed, well nourished, no acute distress, non-toxic appearance. [] HENT: Normocephalic, atraumatic, oropharynx moist, no oral exudates, nose normal, patient has significant soft cerumen bilaterally with normal-appearing external auditory canals and no pain on palpation right-sided tympanic membrane visible and left 1 slightly obscured but approximately 50 percent visible showing some opaqueness and mild bulge suggestive of otitis media. Eyes: PERRLA, EOMI, conjunctiva normal, no discharge. [] Neck: Normal range of motion, no tenderness, supple, no stridor, no lymphadenopathy. [] Cardiovascular:Heart rate regular rhythm, no murmur [] Lungs & Thorax: Bilateral breath sounds clear to auscultation [] Abdomen: soft, no tenderness, no masses, no pulsatile masses. [] Skin: Warm, dry, no erythema, no rash. [] Extremities: No tenderness, ROM intact, no edema. [] Neurologic: Alert and oriented X 3, normal motor function, normal sensory function, able to sit, stand and walk without issue, no focal deficits noted. [] Psychologic: Affect normal, judgement normal, mood normal. [] EKG EKG [] Radiology/Procedures Radiology/Procedures [] FINDINGS: No abnormal attenuation within the brain parenchyma. No evidence of acute intracranial hemorrhage. No extra-axial fluid collections. No mass effect or midline shift. Ventricular size is appropriate. Basal cisterns are patent. No fractures identified.Bah-white differentiation is preserved.Globes and orbits are within normal limits. 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 Lucency identified in the left molar maxillary region likely recent wisdom tooth extraction. The bilateral orbital globes appear unremarkable. The visualized paranasal sinuses are clear. IMPRESSION: 1. No acute intracranial findings. 2. Lucency identified in the left molar maxillary region likely recent wisdom tooth extraction. Heart Score C/O Chest Pain: No Risk Factors: Risk Factors: DM, Current or recent (<one month) smoker, HTN, HLP, family history of CAD, obesity. Risk Scores: Risk Factors: DM, Current or recent (<one month) smoker, HTN, HLP, family history of CAD, obesity. Course & Med Decision Making Course & Med Decision Making Patient is a 25-year-old male who presents with headache Vital signs notable for hypertension. Physical exam noted above. Patient placed on the monitor with IV access established and IV fluid begun. Started on headache cocktail. Laboratory analysis not concerning. CT of the max face and head with contrast not concerning other than lucency shown where wisdom tooth was removed. Absolute neutrophil count appropriate which is good surrogate for CD4 out and 98% sensitivity. Patient started on Augmentin in the ED for otitis media. Discussed pain management at home. Advised to take antibiotics as prescribed. Advised to call primary care physician in the morning to update on ED visit and set up follow-up. Gave return precautions to the ED. Patient grateful, verbalized understanding and agreed with plan of discharge. [] Dragon Disclaimer Dragon Disclaimer This electronic medical record was generated, in whole or in part, using a voice recognition dictation system. Departure Departure: Impression: Primary Impression: Migraine Additional Impression: Otitis media Disposition: HOME / SELF CARE / HOMELESS Condition: GOOD Referrals: JEROME BLANC MD (PCP) Patient Instructions: Migraine Headache, Otitis Media, Adult Additional Instructions: Thank you for coming into the emergency department tonight and allowing us to take care of you. Please read all the attached information very carefully to go back over what we discussed. Please begin a Tylenol, ibuprofen, Benadryl regimen at home for symptom control. Please take all your antibiotics as prescribed. Please call your primary care physician first thing in the morning to update on ED visit and set up a follow-up. If you do not have a primary care physician, you were given resources for local free clinics/primary care physicians but she can call to establish care. Please call your infectious disease doctor as well to update on your status. Please come back to the ED with new or concerning symptoms. Scripts Amoxicillin/Potassium Clav (AUGMENTIN 875-125 TABLET) 1 Each Tablet 1 TAB PO BID for otitis media for 10 Days, #19 TAB 0 Refills Prov: RJ ACOSTA MD 01/29/21 Ibuprofen (IBUPROFEN) 600 Mg Tablet 600 MG PO TID for ear pain for 3 Days, #9 TAB 2 Refills Prov: RJ ACOSTA MD 01/29/21 Problem Qualifiers RJ ACOSTA MD Jan 29, 2021 02:29
[2021-01-29] MEDS ORDERED: ONDANSETRON PF 4 MG/2 ML VIAL. IVP ONE (03:00)
[2021-01-29] MEDS ORDERED: MORPHINE SULFATE 2 MG/ML DISP.SYRIN. IV ONE (03:00)
[2021-01-29] MEDS ORDERED: IV RINGERS SOLUTION,LACTATED 1,000 ML IV ONE (03:00)
[2021-01-29] MEDS ORDERED: PROCHLORPERAZINE 10 MG/2 ML VIAL. IV ONE (03:00)
[2021-01-29] MEDS ORDERED: diphenhydrAMINE 50 MG/ML VIAL IVP ONE (03:00)
[2021-01-29] MEDS ORDERED: IOHEXOL 300 MG/ML 75 ML VIAL. IV ONE (03:00)
[2021-01-29] MEDS ORDERED: KETOROLAC 30 MG/ML VIAL. IVP ONE (03:00)
[2021-01-29] MEDS ORDERED: CONTRAST GIVEN. MC PRN (03:00)
[2021-01-29] MEDS ORDERED: IBUP600T16 PO (03:04)
[2021-01-29] MEDS ORDERED: HYDR-2155 PO (03:04)
[2021-01-29] MEDS ORDERED: AMOXICILLIN/K CLAV 875/125MG TABLET. PO ONE (03:30)
[2021-01-29 03:40] LABS: BASO % 0 % (0-3); CALCIUM 7.8 mg/dL (8.5-10.1); EOS # 0.1 x10^3/uL (0.0-0.7); EOS % 1 % (0-3); GFR 109.3; HEMATOCRIT 42.9 % (39.0-53.0); HEMOGLOBIN 14.3 g/dL (13.0-17.5); LYMPH # 2.4 x10^3/uL (1.0-4.8); LYMPH % 48 % (24-48); MEAN CORPUSCULAR HEMOGLOBIN 29 pg (25-35); MEAN CORPUSCULAR HGB CONC 33 g/dL (31-37); MEAN CORPUSCULAR VOLUME 87 fL (79-100); MONO # 0.4 x10^3/uL (0.0-1.1); MONO % 8 % (0-9); NEUT # 2.1 x10^3uL (1.8-7.7); NEUT % 42 % (31-73); PLATELET COUNT 178 x10^3/uL (140-400); POTASSIUM 3.8 mmol/L (3.5-5.1); RED BLOOD COUNT 4.95 x10^6/uL (4.30-5.70); WHITE BLOOD COUNT 4.9 x10^3/uL (4.0-11.0)
--- NOTE | 2021-01-29 03:51 | RAD ---
Examination: CT head and maxillofacial with IV contrast HISTORY: History of left-sided pain, facial pain COMPARISON: CT head from 01/28/2021 TECHNIQUE: Axial CT images of the head and face was performed with IV contrast. Coronal and sagittal reformats are performed Exposure: One or more of the following individualized dose reduction techniques were utilized for thi s examination: 1. Automated exposure control 2. Adjustment of the mA and/or kV according to patient size 3. Use of iterative reconstruction technique FINDINGS: CT HEAD INDICATION: Reason: lt side ear and facial pain w/ radiation to lt [employer] 300 70 / Spl. Instruct ions: H/O HIV, recent wisdom tooth extraction / History: COMPARISON: None Available. Exposure: One or more of the following individualized dose reduction techniques were utilized for thi s examination: 1. Automated exposure control 2. Adjustment of the mA and/or kV according to patient size 3. Use of iterative reconstruction technique TECHNIQUE: 5 mm contiguous axial images were obtained from the skull base to the vertex in both bone and soft tissue algorithm. FINDINGS: No abnormal attenuation within the brain parenchyma. No evidence of acute intracranial hemorrhage. No extra-axial fluid collections. No mass effect or midline shift. Ventricular size is appropriate. Basal cisterns are patent. No fractures identified.Bah-white differentiation is preserved.Globes and orbits are within normal l imits. 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 Lucency identified in the left molar maxillary region likely recent wisdom tooth extraction. The laxmi ateral orbital globes appear unremarkable. The visualized paranasal sinuses are clear. IMPRESSION: 1. No acute intracranial findings. 2. Lucency identified in the left molar maxillary region likely recent wisdom tooth extraction. Electronically signed by: Jameel Alanis MD (01/29/2021 3:49 AM) [id number]
[2021-01-29] MEDS ORDERED: AMOX1TAB61 PO (03:58)
[2021-01-29] MEDS ORDERED: HYDROcodone/APAP 5/325MG 1 TAB TABLET ONE (04:10)
[2021-01-29 04:13] VITALS: BP 124/59
[2021-01-29] MEDS ORDERED: HYDROcodone/APAP 5/325MG 1 TAB TABLET PO ONE (04:15)
== END 2021-01-29 04:14 | disposition home or self-care (01) ==
LOC: ER 02:15
DX: G43.909 Migraine, unspecified, not intractable, without status migrainosus (principal); H66.92 Otitis media, unspecified, left ear; F17.200 Nicotine dependence, unspecified, uncomplicated
CPT/HCPCS: 36415; 70460; 70487; 80048; 85025; 96361; 96374; 96375; 99285; J0780; J1200; J1885; J2270; J2405; J7120; Q9967

== ENCOUNTER 2021-03-21 23:52 | Emergency (ER) | payer SELFPAY ==
[~2021-03-21] VITALS: Ht 170.2 cm; Wt 91.0 kg
[~2021-03-21 23:52] MED LIST changes: +IBUP600T16 PO
--- NOTE | 2021-03-22 00:02 | PHYS DOC ---
Past History Past Medical History: HIV Additional Past Medical Histor: Headache, Dental Caries, right leg infection- needed wound Vac. Past Surgical History: Other Additional Past Surgical Histo: Wart removal Smoking: Greater than 1 pack/day Alcohol Use: Occasionally Drug Use: Marijuana Adult General Chief Complaint Chief Complaint: CHEST PAIN HPI HPI Patient is a 25-year-old male who presents to the emergency department with a chief complaint of chest pain that started about an hour before coming into the emergency department after sniffing some cocaine. States the pain is centralized, sharp in nature, 7 out of 10 with no radiation. Denies any diaphoresis, shortness of breath, abdominal pain. Does endorse nausea. States he has had a lot going on at home has been stressed out and that is why did it. Denies any recent traumas, travels, illnesses, fevers, other chest pain, shortness of breath, dyspnea on exertion, orthopnea, PND or edema, Covid/flu/cold symptoms, abdominal pain, nausea, vomiting, diarrhea. Denies any hematuria or blood in the stool. Review of Systems Review of Systems View of systems otherwise unremarkable except noted in HPI Allergies Allergies Allergies Coded Allergies Type Severity Reaction Last Updated Verified No Known Drug Allergies 03/21/21 No Physical Exam Physical Exam Constitutional: Well developed, well nourished, no acute distress, non-toxic appearance. [] HENT: Normocephalic, atraumatic, bilateral external ears normal, oropharynx moist, no oral exudates, nose normal. [] Eyes: conjunctiva normal, no discharge. [] Neck: Normal range of motion, no tenderness, supple, no stridor. [] Cardiovascular: Sinus tachycardia Lungs & Thorax: Bilateral breath sounds clear to auscultation [] Abdomen: soft, no tenderness, no masses, no pulsatile masses. [] Skin: Warm, dry, no erythema, no rash. [] Back: no CVA tenderness. [] Extremities: No tenderness, no cyanosis, no clubbing, ROM intact, no edema. [] Neurologic: Alert and oriented X 3, no focal deficits noted. [] Psychologic: Affect normal, judgement abnormal, mood normal. [] EKG EKG EKG with a rate of 118, QRS of 90, QTc of 428, no STEMI, sinus tachycardia [] Radiology/Procedures Radiology/Procedures [] Heart Score C/O Chest Pain: Yes HEART Score for Chest Pain: HEART Score for Chest Pain Response (Comments) Value History Slighlty/Non-Suspicious 0 ECG Normal 0 Age < 45 0 Risk Factors 1 or 2 Risk Factors 1 Troponin < Normal Limit 0 Total 1 Risk Factors: Risk Factors: DM, Current or recent (<one month) smoker, HTN, HLP, family history of CAD, obesity. Risk Scores: Risk Factors: DM, Current or recent (<one month) smoker, HTN, HLP, family history of CAD, obesity. Course & Med Decision Making Course & Med Decision Making Patient is a 25-year-old male who presents with chest pain after doing cocaine Vital signs notable for tachycardia and hypertension. Physical exam noted above. EKG noted above with sinus tachycardia no STEMI. Initial troponin normal. Placed on the monitor with IV access established, IV fluid given in given benzodiazepine. Given Tylenol. Given Benadryl. Given Zofran for nausea. On reassessment patient symptoms had resolved and he was feeling better. Vital signs significantly improved with heart rate of 72, BP 130/76, percent on room air. Patient requesting to be discharged home. Discussed all findings with family. Advised to cease using any medications that were not given to you by a physician. Vies to follow-up Wednesday morning with primary care physician. Gave strict return precautions to the ED. Family grateful, verbalized understanding and agr eed with plan of discharge. [] Dragon Disclaimer Dragon Disclaimer This electronic medical record was generated, in whole or in part, using a voice recognition dictation system. Departure Departure: Impression: Primary Impression: Cocaine abuse Additional Impression: Chest pain Disposition: HOME / SELF CARE / HOMELESS Condition: GOOD Referrals: JEROME BLANC MD (PCP) Patient Instructions: Chest Pain (Nonspecific), Cocaine Abuse and Chemical Dependency Additional Instructions: Thank you for coming into the emergency department tonight and allowing us to take care of you. Please read all the attached information carefully to go back over things we discussed. Please cease using any substances that were not prescribed to you by physician. Please follow-up with your primary care physician first thing Wednesday to update on ED visit and set up a follow- up. Please come back to the ED with new or concerning symptoms as discussed. Problem Qualifiers RJ ACOSTA MD Mar 22, 2021 00:02
[2021-03-22] MEDS ORDERED: IV RINGERS SOLUTION,LACTATED 1,000 ML IV ONE (00:30)
[2021-03-22] MEDS ORDERED: MIDAZOLAM HCL PF 5 MG/5 ML VIAL. IV ONE (00:30)
--- NOTE | 2021-03-22 00:38 | EKG ---
[facility] ED [facility] [place] [id number] Test Date: 2021-03-21 Test Time: 23:52:05 Pat Name: KRISTI WEISS Department: Room: Gender: M Ship Pilot: : 1995 Requested By: RJ ACOSTA Order Number: [id number] Reading MD: Measurements Intervals [place] Rate: 118 P: 79 WV: 134 QRS: 55 QRSD: 90 T: -7 QT: 304 QTc: 428 Interpretive Statements SINUS TACHYCARDIA T ABNORMALITY IN INFERIOR LEADS ABNORMAL ECG RI6.02 No previous ECG available for comparison
[2021-03-22] MEDS ORDERED: ONDANSETRON PF 4 MG/2 ML VIAL. IVP ONE (00:45)
--- NOTE | 2021-03-22 01:14 | RAD ---
XR CHEST 1V Clinical Indication: Reason: chest pain / Comparison: AP chest January 28, 2021 Findings: The cardiomediastinal silhouette is normal. Lungs are clear. There is no pneumothorax. No pleural eff usion is appreciated. No acute bone abnormality. IMPRESSION: No acute cardiopulmonary process. Electronically signed by: Bakari Membreno MD (03/22/2021 1:11 AM) [facility]ENTER[facility]yna
[2021-03-22 01:15] VITALS: BP 165/84
[2021-03-22] MEDS ORDERED: diphenhydrAMINE HCL 25 MG CAPSULE PO ONE (02:00)
[2021-03-22] MEDS ORDERED: ACETAMINOPHEN 500 MG TABLET PO ONE (02:00)
== END 2021-03-22 01:45 | disposition home or self-care (01) ==
LOC: ER 23:52
DX: R07.89 Other chest pain (principal); F14.10 Cocaine abuse, uncomplicated; R51.9 Headache, unspecified; F17.200 Nicotine dependence, unspecified, uncomplicated; F12.10 Cannabis abuse, uncomplicated
CPT/HCPCS: 36415; 71045; 84484; 93005; 96361; 96374; 96375; 99285; J2250; J2405; J7120; Q0163

== ENCOUNTER 2021-04-04 22:20 | Emergency (ER) | payer SELFPAY | END 2021-04-04 22:48 | disposition left against medical advice (07) | LOC: ER 22:20 | DX: L50.9 Urticaria, unspecified (principal); Z53.21 Procedure and treatment not carried out due to patient leaving prior to being seen by health care provider ==

== ENCOUNTER 2021-04-05 19:09 | Emergency (ER) | payer SELFPAY ==
[~2021-04-05] VITALS: Ht 170.2 cm; Wt 108.2 kg
[2021-04-05 19:42] VITALS: BP 133/77
--- NOTE | 2021-04-05 21:43 | PHYS DOC ---
Past History Past Medical History: HIV Additional Past Medical Histor: Headache, Dental Caries, right leg infection- needed wound Vac. (MARIA GUADALUPE HERNANDEZ APRN) Past Surgical History: Other Additional Past Surgical Histo: Wart removal, KNEE SX, FOOT SX (MARIA GUADALUPE HERNANDEZ APRN) Smoking: Greater than 1 pack/day Alcohol Use: Occasionally Drug Use: Marijuana (MARIA GUADALUPE HERNANDEZ APRN) General Adult EDM: Chief Complaint: OTHER COMPLAINTS HPI: HPI: Patient is a 25-year-old male who presents with joint pain, nausea, diarrhea, pruritic rash. patient states he started taking Benadryl and Pepcid last night with no relief. Denies change in detergent, soaps. Denies fever, or recent exposure. Patient states that he is HIV positive and concerned about having an infection. Patient states he has not been receiving treatment for HIV. (MARIA GUADALUPE HERNANDEZ APRN) Review of Systems: Review of Systems: Constitutional: Denies fever, reports chills Eyes: Denies change in visual acuity HENT: Denies nasal congestion or sore throat Respiratory: Denies cough or shortness of breath Cardiovascular: Denies chest pain or edema GI: Denies abdominal pain, reports nausea, diarrhea : Denies dysuria Musculoskeletal: Reports joint pain Integument: Reports pruritic rash Neurologic: Denies headache, focal weakness or sensory changes Endocrine: Denies polyuria or polydipsia Lymphatic: Denies swollen glands Psychiatric: Denies depression or anxiety (MARIA GUADALUPE HERNANDEZ APRN) Allergies: Allergies: Allergies Coded Allergies Type Severity Reaction Last Updated Verified No Known Drug Allergies 03/21/21 No (MARIA GUADALUPE HERNANDEZ APRN) Physical Exam: PE: Constitutional: Well developed, well nourished, no acute distress, non-toxic appearance. [] HENT: Normocephalic, atraumatic, bilateral external ears normal, oropharynx moist, no oral exudates, nose normal. [] Eyes: PERRLA, EOMI, conjunctiva normal, no discharge. [] Neck: Normal range of motion, no tenderness, supple, no stridor. [] Cardiovascular:Heart rate regular rhythm, no murmur [] Lungs & Thorax: Bilateral breath sounds clear to auscultation [] Abdomen: Bowel sounds normal, soft, no tenderness, no masses, no pulsatile masses. [] Skin: Warm, dry, no erythema, red, pruritic rash, hand and foot pain and sensitivity Back: No tenderness, no CVA tenderness. [] Extremities: No tenderness, no cyanosis, no clubbing, ROM intact, no edema. [] Neurologic: Alert and oriented X 3, normal motor function, normal sensory function, no focal deficits noted. [] Psychologic: Affect normal, judgement normal, mood normal. [] (MARIA GUADALUPE HERNANDEZ APRN) Current Patient Data: Vital Signs: Vital Signs Date Time Temp Pulse Resp B/P (MAP) Pulse Ox O2 Delivery O2 Flow Rate FiO2 04/05/21 19:42 98.4 118 18 133/77 (95) 98 Room Air (MARIA GUADALUPE HERNANDEZ APRN) EKG: EKG: [] (MARIA GUADALUPE HERNANDEZ APRN) Radiology/Procedures: Radiology/Procedures: [] (MARIA GUADALUPE HERNANDEZ APRN) Heart Score: C/O Chest Pain: No Risk Factors: Risk Factors: DM, Current or recent (<one month) smoker, HTN, HLP, family history of CAD, obesity. Risk Scores: Score 0 - 3: 2.5% MACE over next 6 weeks - Discharge Home Score 4 - 6: 20.3% MACE over next 6 weeks - Admit for Clinical Observation Score 7 - 10: 72.7% MACE over next 6 weeks - Early Invasive Strategies (MARIA GUADALUPE HERNANDEZ APRN) Course & Med Decision Making: Course & Med Decision Making Pertinent Labs and Imaging studies reviewed. (See chart for details) [] 25-year-old male presents with joint pain, nausea/diarrhea/pruritic rash x2 days. Patient been taking Benadryl without relief. Patient states he is HIV positive and he is concerned about infection. Patient is not currently on any regimen for his HIV. Denies taking any medications at this time. CBC, CMP, blood cultures and lactic ordered to rule out abnormality of infections. All labs unremarkable. Discussed results with patient. Patient given Zofran, Motrin, Benadryl, Protonix, 60 mg of prednisone to help with symptoms. Patient instructed to continue taking Benadryl and Protonix at home for rash. Ibuprofen and Tylenol for discomfort. Advised patient to drink plenty of fluids to avoid dehydration. Patient is hemodynamically stable upon disposition. (MARIA GUADALUPE HERNANDEZ APRN) Nesha Disclaimer: Nesha Disclaimer: This electronic medical record was generated, in whole or in part, using a voice recognition dictation system. (MARIA GUADALUPE HERNANDEZ APRN) Departure Departure: Impression: Primary Impression: Rash Additional Impressions: Nausea vomiting and diarrhea HIV (human immunodeficiency virus infection) Qualified Codes: B20 - Human immunodeficiency virus [HIV] disease Disposition: HOME / SELF CARE / HOMELESS Condition: STABLE Referrals: JEROME BLANC MD (PCP) Patient Instructions: Diet for Diarrhea, Adult, Rash, [id number] Additional Instructions: You are seen in the emergency room for nausea, diarrhea, rash. You were given Zofran, prednisone, Benadryl, Pepcid while in the emergency room. Continue taking Benadryl at home to help with itching. Ibuprofen and Tylenol for chills and joint pain. Drink plenty of fluids to avoid dehydration. Follow-up with your PCP. Return to the emergency room if you have worsening symptoms or concerns. EMERGENCY DEPARTMENT GENERAL DISCHARGE INSTRUCTIONS Thank you for coming to [facility] (ED) today and trusting us with you care. We trust that you had a positivie experience in our Emergency Department. If you wish to speak to the department management, you may call the director at [phone]. YOUR FOLLOW UP INSTRUCTIONS ARE FOLLOWS: 1. Do you have a private Doctor? If you do not have a private doctor, please ask for a resource list of physicians or clinics that may be able to assist you with follow up care. 2. The Emergency Physician has interpreted your x-rays. The X-Ray specialist will also review them. If there is a change in the findings, you will be notified in 48 hours when at all possible. 3. A lab test or culture has been done, your results will be reviewed and you will be notified if you need a change in treatment. ADDITIONAL INSTRUCTIONS AND INFORMATION: 1. Your care today has been supervised by a physician who is specially trained in emergency care. Many problems require more than one evaluation for a complete diagnosis and treatment. We recommend that you schedule your follow up appointment as recommended to ensure complete treatment of you illness or injury. If you are unable to obtain follow up care and continue to have a problem, or if your condition worsens, we recommend that you return to the ED. 2. We are not able to safely determine your condition over the phone nor are we able to give sound medical advice over the phone. For these safety reasons, if you call for medical advice we will ask you to come to the ED for further evaluation. 3. If you have any questions regarding these discharge instructions please call the ED at [phone]. SAFETY INFORMATION: In the interest of safety, wellness, and injury prevention; we encourage you to wear your sealbelt, if you smoke; quite smoking, and we encourage family to use a protective helmet for bicycling and other sporting events that present an increased risk for head injury. IF YOUR SYMPTOMS WORSEN OR NEW SYMPTOMS DEVELOP, OR YOU HAVE CONCERNS ABOUT YOUR CONDITION; OR IF YOUR CONDITION WORSENS WHILE YOU ARE WAITING FOR YOUR FOLLOW UP APPOINTMENT; EITHER CONTACT YOUR PRIMARY CARE DOCTOR, THE PHYSICIAN WHOSE NAME AND NUMBER YOU WERE GIVEN, OR RETURN TO THE ED IMMEDIATELY. Attending Signature Attending Signature I have participated in the care of this patient and I have reviewed and agree with all pertinent clinical information above including history, exam, and recommendations. (KHOI AGUERO MD) MARIA GUADALUPE HERNANDEZ APRN Apr 05, 2021 21:43 KHOI AGUERO MD Apr 07, 2021 06:39
[2021-04-05 21:45] LABS: BASO % 1 % (0-3); EOS % 0 % (0-3); HEMATOCRIT 46.3 % (39.0-53.0); HEMOGLOBIN 15.6 g/dL (13.0-17.5); LYMPH # 1.6 x10^3/uL (1.0-4.8); LYMPH % 25 % (24-48); MEAN CORPUSCULAR HEMOGLOBIN 29 pg (25-35); MEAN CORPUSCULAR HGB CONC 34 g/dL (31-37); MEAN CORPUSCULAR VOLUME 85 fL (79-100); MONO # 0.3 x10^3/uL (0.0-1.1); MONO % 4 % (0-9); NEUT # 4.6 x10^3uL (1.8-7.7); NEUT % 70 % (31-73); PLATELET COUNT 212 x10^3/uL (140-400); RED BLOOD COUNT 5.44 x10^6/uL (4.30-5.70); RED CELL DISTRIBUTION WIDTH 12.9 % (11.5-14.5); WHITE BLOOD COUNT 6.5 x10^3/uL (4.0-11.0)
[2021-04-05 21:46] LABS: CALCIUM 9.3 mg/dL (8.5-10.1); CREATININE 0.9 mg/dL (0.7-1.3); GFR 123.4
[2021-04-05 21:52] LABS: TOTAL BILIRUBIN 0.6 mg/dL (0.2-1.0); TOTAL PROTEIN 7.9 g/dL (6.4-8.2)
[2021-04-05] MEDS ORDERED: predniSONE 20 MG TABLET PO ONE (22:00)
[2021-04-05] MEDS ORDERED: diphenhydrAMINE 50 MG/ML VIAL IVP ONE (22:00)
[2021-04-05] MEDS ORDERED: ONDANSETRON PF 4 MG/2 ML VIAL. IVP ONE (22:00)
[2021-04-05] MEDS ORDERED: FAMOTIDINE 20 MG/2 ML VIAL IVP ONE (22:00)
[2021-04-05] MEDS ORDERED: IBUPROFEN 600 MG TABLET. PO ONE (22:00)
[2021-04-05 23:29] LABS: BACTERIA,URINE 0 /HPF (0-FEW); BILIRUBIN,URINE NEG (NEG); CLARITY,URINE CLEAR; COLOR,URINE YELLOW; GLUCOSE,URINE NEG (NEG); NITRITE,URINE NEG (NEG); RBC,URINE 0 /HPF (0-2); SQUAMOUS EPITHELIAL CELL,UR OCC /LPF; UROBILINOGEN,URINE 0.2 mg/dL (0.2 mg/dL)
== END 2021-04-05 22:48 | disposition home or self-care (01) ==
LOC: ER 19:09
DX: R21 Rash and other nonspecific skin eruption (principal); R11.2 Nausea with vomiting, unspecified; R19.7 Diarrhea, unspecified; B20 Human immunodeficiency virus [HIV] disease; F17.200 Nicotine dependence, unspecified, uncomplicated
CPT/HCPCS: 36415; 80053; 81001; 83605; 85025; 87040; 96374; 96375; 99284; J1200; J2405; J3490; J7512

== ENCOUNTER 2021-04-30 22:15 | Emergency (ER) | payer MEDICAID ==
[~2021-04-30] VITALS: Ht 170.2 cm; Wt 108.2 kg
--- NOTE | 2021-04-30 22:43 | PHYS DOC ---
Past History Past Medical History: HIV Additional Past Medical Histor: Headache, Dental Caries, right leg infection- needed wound Vac. Past Surgical History: Other Additional Past Surgical Histo: Wart removal, KNEE SX, FOOT SX Smoking: Greater than 1 pack/day Alcohol Use: Occasionally Drug Use: Marijuana General Adult EDM: Chief Complaint: DENTAL PROBLEM HPI: HPI: ".. I got bad dental pain.. but I could not go to my apt... on .. because I got COVID....now I got to wait to get in... " Patient is a 25 year old male who presents with above hx and complaints of dental pain. Patient locates pain primarily and tooth area 16. Patient has some surrounding erythema. No pointing abscess. Does have some swelling over left mandible. Patient does have history of immunosuppression with HIV diagnosed in 2012. Patient is not currently on HIV suppressive meds. Patient normally follows at . Patient does have a history of polysubstance abuse. Patient does continue to smoke. Patient follows locally with Dr. aWlls. Review of Systems: Review of Systems: Constitutional: Denies fever or chills Eyes: Denies change in visual acuity HENT: Denies nasal congestion or sore throat. Complains of dental pain Respiratory: Denies cough or shortness of breath Cardiovascular: Denies chest pain or edema GI: Denies abdominal pain, nausea, vomiting, bloody stools or diarrhea : Denies dysuria Musculoskeletal: Denies back pain or joint pain Integument: Denies rash Neurologic: Denies headache, focal weakness or sensory changes Endocrine: Denies polyuria or polydipsia Lymphatic: Denies swollen glands Psychiatric: Denies depression or anxiety Family History: Family History: Noncontributory to presentation Current Medications: Current Meds: See nursing for home meds Allergies: Allergies: Allergies Coded Allergies Type Severity Reaction Last Updated Verified No Known Drug Allergies 03/21/21 No Physical Exam: PE: Constitutional: Well developed, well nourished, moderate acute distress, non- toxic appearance. [] HENT: Normocephalic, atraumatic, bilateral external ears normal, oropharynx moist, no oral exudates, nose normal. Dental caries. Pain in area 16 Eyes: PERRLA, EOMI, conjunctiva normal, no discharge. [] Neck: Normal range of motion, no tenderness, supple, no stridor. [] Cardiovascular:Heart rate regular rhythm, no murmur [] Lungs & Thorax: Bilateral breath sounds clear to auscultation [] Abdomen: Bowel sounds normal, soft, no tenderness, no masses, no pulsatile masses. [] Skin: Warm, dry, no erythema, no rash. [] Back: No tenderness, no CVA tenderness. [] Extremities: No tenderness, no cyanosis, no clubbing, ROM intact, no edema. [] Neurologic: Alert and oriented X 3, normal motor function, normal sensory function, no focal deficits noted. [] Psychologic: Affect anxious, judgement normal, mood normal. [] EKG: EKG: [] Radiology/Procedures: Radiology/Procedures: [] Heart Score: C/O Chest Pain: N/A Risk Factors: Risk Factors: DM, Current or recent (<one month) smoker, HTN, HLP, family history of CAD, obesity. Risk Scores: Score 0 - 3: 2.5% MACE over next 6 weeks - Discharge Home Score 4 - 6: 20.3% MACE over next 6 weeks - Admit for Clinical Observation Score 7 - 10: 72.7% MACE over next 6 weeks - Early Invasive Strategies Course & Med Decision Making: Course & Med Decision Making Pertinent Labs and Imaging studies reviewed. (See chart for details) Patient keep follow-up dental appointment. Patient take Keflex 500 mg 3 times a day. Patient pleaded his current antibiotic course. Patient take Tylenol and ibuprofen for pain. For marked pain may take Vicoprofen. Follow-up primary care. Follow-up with [facility]. Recommend patient get back on HIV suppression. Patient return if any concerns. Impression: 1. Dental pain 2. Dental caries 3. History HIV diagnosed 2012 [] Nesha Disclaimer: Nesha Disclaimer: This electronic medical record was generated, in whole or in part, using a voice recognition dictation system. Departure Departure: Referrals: ZAHRA BUCK DO (PCP) Scripts Hydrocodone/Ibuprofen (HYDROCODONE-IBUPROFEN 7.5-200 ) 1 Each Tablet 1 TAB PO PRN Q6HRS PRN for PAIN, #30 TAB 0 Refills Prov: KHOI AGUERO MD 04/30/21 Cephalexin (KEFLEX) 500 Mg Capsule 500 MG PO TID for dental infection for 14 Days, #42 CAP Prov: KHOI AGUERO MD 04/30/21 Dragon Disclaimer This chart was dictated in whole or in part using Voice Recognition software in a busy, high-work load, and often noisy Emergency Department environment. It may contain unintended and wholly unrecognized errors or omissions. Dragon Disclaimer This chart was dictated in whole or in part using Voice Recognition software in a busy, high-work load, and often noisy Emergency Department environment. It may contain unintended and wholly unrecognized errors or omissions. KHOI AGUERO MD Apr 30, 2021 22:43
[2021-04-30] MEDS ORDERED: HYDR-1179 PO (22:52)
[2021-04-30] MEDS ORDERED: CEPH500C PO (22:52)
[2021-04-30 22:57] VITALS: BP 162/66
[2021-04-30] MEDS: CEPHALEXIN 250 MG CAPSULE PO ONE (23:10)
[2021-04-30] MEDS: KETOROLAC 60 MG/2 ML VIAL. IM ONE (23:11)
[2021-04-30] MEDS: ACETAMINOPHEN 500 MG TABLET PO ONE (23:11)
== END 2021-04-30 23:12 | disposition home or self-care (01) ==
LOC: ER 22:15
DX: K02.9 Dental caries, unspecified (principal); F17.200 Nicotine dependence, unspecified, uncomplicated
CPT/HCPCS: 96372; 99283; J1885